=== PATIENT | female | born 1950 | race Asian ===

== ENCOUNTER 2017-02-28 06:28 | Emergency (ER) | payer BC ==
[~2017-02-28] VITALS: Ht 165.1 cm; Wt 90.4 kg
[~2017-02-28 06:28] MED LIST: ASPIRIN LOW81 M1 OR; AUGMENTIN875TAB PO; CIPROFLOXACN500 MG PO; D-3-55000 UNIT OR; DETROL LA2 MG PO; LISINOPRIL10 MG PO; LOPRESSOR25 M1 PO; LOPRESSOR50 M1 PO; LORTAB 7.57.5 MG OR; MECLIZINE12.5 MG PO; MELOXICAM15 MG PO; METOPROL TAR50 MG PO; MEXILETINE150 MG OR; NAPROSYN500 MG PO; NAPROXEN250 MG PO; NO HOME MEDS; OMEPRAZOLE20 MG; OMEPRAZOLE20 MG PO; PROTONIX40 M2 PO; PYRIDIUM200 MG PO; SIMVASTATIN10 MG PO; SIMVASTATIN40 MG PO; VITAMIN D-35000 UNIT; ZOLOFT25 MG PO
[2017-02-28] MEDS ORDERED: METFORMIN500 M2 PO (06:34)
[2017-02-28] MEDS ORDERED: PRINIVIL5 MG PO (06:35)
[2017-02-28] MEDS ORDERED: PYRIDIUM200 MG PO (07:16)
[2017-02-28] MEDS ORDERED: KEFLEX500 MG PO (07:16)
[2017-02-28 07:28] LABS: URINE BILIRUBIN - DIPSTICK NEGATIVE (NEGATIVE); URINE BLOOD DIPSTICK SMALL (NEGATIVE); URINE CLARITY CLEAR; URINE COLOR YELLOW; URINE GLUCOSE - DIPSTICK NEGATIVE (NEGATIVE); URINE KETONE NEGATIVE (NEGATIVE); URINE LEUK ESTERASE TRACE (NEGATIVE); URINE NITRITE - DIPSTICK NEGATIVE (Negative); URINE PROTEIN - DIPSTICK TRACE mg/dL (NEG-TRACE); URINE SPECIFIC GRAVITY >=1.030; URINE UROBILINOGEN - DIPSTICK 0.2 E.U./dL (0.2)
[2017-02-28 07:38] LABS: URINE SQUAMOUS EPITHELIAL CELL FEW EPI/hpf (0-FEW)
[2017-02-28 07:45] VITALS: BP 144/64
== END 2017-02-28 07:52 | disposition home or self-care (01) | DRG 690 ==
LOC: ED 06:28
PROVIDERS: Emergency Medicine
DX: N39.0 Urinary tract infection, site not specified (principal); I10 Essential (primary) hypertension; I25.10 Atherosclerotic heart disease of native coronary artery without angina pectoris; E11.9 Type 2 diabetes mellitus without complications; E78.00 Pure hypercholesterolemia, unspecified

== ENCOUNTER 2018-04-03 19:47 | Emergency (ER) | payer BC ==
[~2018-04-03] VITALS: Ht 165.1 cm; Wt 89.1 kg
[~2018-04-03 19:47] MED LIST changes: +KEFLEX500 MG PO; +METFORMIN500 M2 PO; +PRINIVIL5 MG PO
[2018-04-03] MEDS ORDERED: TOLTERODINE TART4 MG PO (19:55)
[2018-04-03] MEDS ORDERED: VITAMIN D-31000 UNI1 PO (19:56)
[2018-04-03 20:39] LABS: HEMATOCRIT 39.8 % (37.0-47.0); IMMATURE GRANULOCYTES 0.2 % (0.0-1.0); MEAN CELL VOLUME 98.3 fL CALC (80.0-100.0); MEAN CORPUSCULAR HGB 32.3 pG CALC (26.0-32.0); MEAN CORPUSCULAR HGB CONC 32.9 g/L CALC (32.0-36.0); NEUT# 3.8 thou/uL (2.00-7.15); RED BLOOD COUNT 4.05 mill/uL (4.20-5.60); RED CELL DISTRI WIDTH 12.5 % (11.5-15.5)
[2018-04-03 20:40] LABS: HEMOGLOBIN 13.1 g/dl (12.0-16.0); URINE BILIRUBIN - DIPSTICK NEGATIVE (NEGATIVE); URINE BLOOD DIPSTICK NEGATIVE (NEGATIVE); URINE CLARITY CLEAR; URINE COLOR YELLOW; URINE GLUCOSE - DIPSTICK NEGATIVE (NEGATIVE); URINE KETONE NEGATIVE (NEGATIVE); URINE LEUK ESTERASE NEGATIVE (NEGATIVE); URINE NITRITE - DIPSTICK NEGATIVE (Negative); URINE PROTEIN - DIPSTICK NEGATIVE (NEG-TRACE); URINE SPECIFIC GRAVITY <=1.005; URINE UROBILINOGEN - DIPSTICK 0.2 E.U./dL (0.2)
[2018-04-03 20:50] LABS: ALBUMIN 3.9 g/dL (3.2-5.0); ALKALINE PHOSPHATASE 69 u/l (38-126); ANION GAP 11 (6-22 (CALC)); BILIRUBIN, TOTAL 0.4 mg/dL (0.0-1.4); BUN 17 mg/dL (8-23); BUN/CREATININE RATIO 25 (12-20 (CALC)); CARBON DIOXIDE 25 mmol/l (22-30); CHLORIDE 108 mmol/l (95-108); CREATININE 0.7 mg/dL (0.5-1.0); GFR > 60 ML/MIN (>=60 (CALC)); GFR FOR AFR.AMER. > 60 ML/MIN (>=60 (CALC)); POTASSIUM 3.8 mmol/l (3.5-5.1); SGOT/AST 23 u/l (9-36); SGPT/ALT 38 u/l (11-66); SODIUM 140 mmol/l (137-146); TOTAL PROTEIN 6.8 g/dL (6.3-8.2)
[2018-04-03 21:02] LABS: MYOGLOBIN 21 ng/mL (0 - 62)
[2018-04-03] MEDS ORDERED: LISINOPRIL10 MG PO (21:27)
[2018-04-03 21:33] VITALS: BP 157/66
== END 2018-04-03 21:41 | disposition home or self-care (01) | DRG 305 ==
LOC: ED 19:47
PROVIDERS: Family Medicine
DX: I10 Essential (primary) hypertension (principal); R00.1 Bradycardia, unspecified; I48.91 Unspecified atrial fibrillation; K21.9 Gastro-esophageal reflux disease without esophagitis

== ENCOUNTER 2019-01-12 12:30 | Emergency (ER) | payer BC ==
[~2019-01-12] VITALS: Ht 165.1 cm; Wt 90.0 kg
[~2019-01-12 12:30] MED LIST changes: +ASPIRIN 8181 MG PO; +METO50TA52 PO; +PROTONIX40 MG PO; +TOLTERODINE TART4 MG PO; +VITAMIN D-31000 UNI1 PO
[2019-01-12 13:09] LABS: HEMATOCRIT 43.7 % (37.0-47.0); HEMOGLOBIN 14.1 g/dl (12.0-16.0); IMMATURE GRANULOCYTES 0.3 % (0.0-5.0); MEAN CELL VOLUME 96.5 fL CALC (80.0-100.0); MEAN CORPUSCULAR HGB 31.1 pG CALC (26.0-32.0); MEAN CORPUSCULAR HGB CONC 32.3 g/L CALC (32.0-36.0); NEUT# 3.85 thou/uL (2.00-7.15); RED BLOOD COUNT 4.53 mill/uL (4.20-5.60); RED CELL DISTRI WIDTH 12.5 % (11.5-15.5)
[2019-01-12 13:22] LABS: ALBUMIN 4.2 g/dL (3.2-5.0); ALKALINE PHOSPHATASE 71 u/l (38-126); ANION GAP 13 (6-22 (CALC)); BILIRUBIN, TOTAL 0.7 mg/dL (0.0-1.4); BUN 18 mg/dL (8-23); BUN/CREATININE RATIO 24 (12-20 (CALC)); CARBON DIOXIDE 25 mmol/l (22-30); CHLORIDE 109 mmol/l (95-108); CREATININE 0.7 mg/dL (0.5-1.0); GFR > 60 ML/MIN (>=60 (CALC)); GFR FOR AFR.AMER. > 60 ML/MIN (>=60 (CALC)); LIPASE 92 u/l (23-300); POTASSIUM 4.4 mmol/l (3.5-5.1); SGOT/AST 29 u/l (9-36); SODIUM 142 mmol/l (137-146); TOTAL PROTEIN 7.1 g/dL (6.3-8.2)
[2019-01-12 14:36] VITALS: BP 176/81
[2019-01-12 14:39] LABS: URINE BILIRUBIN - DIPSTICK NEGATIVE (NEGATIVE); URINE BLOOD DIPSTICK NEGATIVE (NEGATIVE); URINE COLOR YELLOW; URINE GLUCOSE - DIPSTICK NEGATIVE (NEGATIVE); URINE KETONE NEGATIVE (NEGATIVE); URINE LEUK ESTERASE NEGATIVE (NEGATIVE); URINE NITRITE - DIPSTICK NEGATIVE (Negative); URINE PH 5.5 (4.5-8.0); URINE PROTEIN - DIPSTICK NEGATIVE (NEG-TRACE); URINE UROBILINOGEN - DIPSTICK 0.2 E.U./dL (0.2)
== END 2019-01-12 15:00 | disposition home or self-care (01) | DRG 313 ==
LOC: ED 12:30
PROVIDERS: Family Medicine
DX: R07.9 Chest pain, unspecified (principal); E11.9 Type 2 diabetes mellitus without complications; I10 Essential (primary) hypertension; I48.91 Unspecified atrial fibrillation; K21.9 Gastro-esophageal reflux disease without esophagitis

== ENCOUNTER 2019-11-03 13:55 | Inpatient (IN) | payer MEDICARE, OTHER ==
[~2019-11-03] VITALS: Ht 165.1 cm; Wt 87.0 kg
[~2019-11-03 13:55] MED LIST changes: -METO50TA52 PO; +TOPROL XL25 M1 PO; -VITAMIN D-31000 UNI1 PO; +VITAMIN D35000 UNI1 PO
[2019-11-03 14:37] LABS: HEMOGLOBIN 13.9 g/dl (12.0-16.0); IMMATURE GRANULOCYTES 0.6 % (0.0-5.0); MEAN CELL VOLUME 97.4 fL CALC (80.0-100.0); MEAN CORPUSCULAR HGB 32.3 pG CALC (26.0-32.0); MEAN CORPUSCULAR HGB CONC 33.1 g/L CALC (32.0-36.0); NEUT# 7.24 thou/uL (2.00-7.15); RED BLOOD COUNT 4.31 mill/uL (4.20-5.60)
[2019-11-03 14:47] LABS: ACT PARTIAL THROMBO TIME 24.2 SECONDS (20.0-32.5); PROTHROMBIN TIME 10.1 SECONDS (9.0-12.5)
[2019-11-03 14:53] LABS: ALBUMIN 3.8 g/dL (3.2-5.0); ALKALINE PHOSPHATASE 61 u/l (38-126); AMYLASE 441 u/l (30-110); ANION GAP 11 (6-22 (CALC)); BILIRUBIN, TOTAL 0.5 mg/dL (0.0-1.4); BUN 32 mg/dL (8-23); BUN/CREATININE RATIO 36 (12-20 (CALC)); CARBON DIOXIDE 27 mmol/l (22-30); CHLORIDE 105 mmol/l (95-108); CREATININE 0.9 mg/dL (0.5-1.0); GFR > 60 ML/MIN (>=60 (CALC)); GFR FOR AFR.AMER. > 60 ML/MIN (>=60 (CALC)); POTASSIUM 3.7 mmol/l (3.5-5.1); SGOT/AST 23 u/l (9-36); SODIUM 138 mmol/l (137-146); TOTAL PROTEIN 6.5 g/dL (6.3-8.2)
[2019-11-03 15:04] LABS: LIPASE 5870 u/l (23-300)
[2019-11-03] MEDS ORDERED: LOSARTAN POTASS25 MG PO (15:10)
[2019-11-03] MEDS ORDERED: MAGNESIUM400 M1 PO (15:10)
[2019-11-03] MEDS ORDERED: VITAMIN B-125000 MC2 PO (15:11)
[2019-11-03] MEDS ORDERED: ZOVIRAX800 MG PO (15:12)
[2019-11-03] MEDS ORDERED: BENZONATATE200 MG PO (15:12)
[2019-11-03] MEDS ORDERED: ALBUTEROL108 MCG/AC IN (15:13)
[2019-11-03 18:35] VITALS: BP 186/65
[2019-11-04] VITALS: BP 120/56
[2019-11-04 03:13] VITALS: BP 130/69
[2019-11-04 05:31] LABS: HEMOGLOBIN 13.1 g/dl (12.0-16.0); MEAN CELL VOLUME 98.3 fL CALC (80.0-100.0); MEAN CORPUSCULAR HGB 32.2 pG CALC (26.0-32.0); MEAN CORPUSCULAR HGB CONC 32.8 g/L CALC (32.0-36.0); RED BLOOD COUNT 4.07 mill/uL (4.20-5.60)
[2019-11-04 05:54] LABS: ANION GAP 9 (6-22 (CALC)); BUN 17 mg/dL (8-23); BUN/CREATININE RATIO 24 (12-20 (CALC)); CARBON DIOXIDE 26 mmol/l (22-30); CHLORIDE 109 mmol/l (95-108); CREATININE 0.7 mg/dL (0.5-1.0); GFR > 60 ML/MIN (>=60 (CALC)); GFR FOR AFR.AMER. > 60 ML/MIN (>=60 (CALC)); POTASSIUM 3.7 mmol/l (3.5-5.1); SODIUM 140 mmol/l (137-146)
[2019-11-04 06:08] LABS: LIPASE 3008 u/l (23-300)
[2019-11-04 11:31] LABS: CHOLESTEROL HDL RATIO 2.7 (<4.4 (CALC))
[2019-11-04 15:56] VITALS: BP 158/55
[2019-11-04 18:31] VITALS: BP 164/68
[2019-11-04 19:50] VITALS: BP 150/65
[2019-11-05 00:39] LABS: URINE BILIRUBIN - DIPSTICK NEGATIVE (NEGATIVE); URINE BLOOD DIPSTICK NEGATIVE (NEGATIVE); URINE COLOR YELLOW; URINE GLUCOSE - DIPSTICK NEGATIVE (NEGATIVE); URINE KETONE NEGATIVE (NEGATIVE); URINE LEUK ESTERASE NEGATIVE (NEGATIVE); URINE NITRITE - DIPSTICK NEGATIVE (Negative); URINE PH 6.5 (4.5-8.0); URINE PROTEIN - DIPSTICK NEGATIVE (NEG-TRACE); URINE SPECIFIC GRAVITY <=1.005; URINE UROBILINOGEN - DIPSTICK 0.2 E.U./dL (0.2)
[2019-11-05 03:52] VITALS: BP 158/66
[2019-11-05 05:21] LABS: HEMATOCRIT 39.4 % (37.0-47.0); MEAN CORPUSCULAR HGB 32.7 pG CALC (26.0-32.0); RED BLOOD COUNT 3.98 mill/uL (4.20-5.60); RED CELL DISTRI WIDTH 13.2 % (11.5-15.5)
[2019-11-05 05:44] LABS: ANION GAP 11 (6-22 (CALC)); BUN 11 mg/dL (8-23); BUN/CREATININE RATIO 18 (12-20 (CALC)); CARBON DIOXIDE 24 mmol/l (22-30); CHLORIDE 108 mmol/l (95-108); CREATININE 0.6 mg/dL (0.5-1.0); GFR > 60 ML/MIN (>=60 (CALC)); GFR FOR AFR.AMER. > 60 ML/MIN (>=60 (CALC)); LIPASE 1467 u/l (23-300); POTASSIUM 3.8 mmol/l (3.5-5.1); SODIUM 139 mmol/l (137-146)
[2019-11-05 08:00] VITALS: BP 184/63
[2019-11-05 15:00] VITALS: BP 167/67
[2019-11-05 19:35] VITALS: BP 149/65
[2019-11-06 04:15] VITALS: BP 140/67
[2019-11-06 06:26] LABS: ALKALINE PHOSPHATASE 59 u/l (38-126); ANION GAP 8 (6-22 (CALC)); BILIRUBIN, TOTAL 0.7 mg/dL (0.0-1.4); BUN 8 mg/dL (8-23); BUN/CREATININE RATIO 14 (12-20 (CALC)); CARBON DIOXIDE 27 mmol/l (22-30); CHLORIDE 108 mmol/l (95-108); CREATININE 0.6 mg/dL (0.5-1.0); GFR > 60 ML/MIN (>=60 (CALC)); GFR FOR AFR.AMER. > 60 ML/MIN (>=60 (CALC)); LIPASE 668 u/l (23-300); POTASSIUM 3.9 mmol/l (3.5-5.1); SGOT/AST 21 u/l (9-36); SODIUM 139 mmol/l (137-146); TOTAL PROTEIN 5.4 g/dL (6.3-8.2)
[2019-11-06 09:09] VITALS: BP 149/67; BP 173/64
[2019-11-06 11:40] VITALS: BP 149/67
[2020-05-13] MEDS ORDERED: DITROPAN5 MG/TA1 PO (12:57)
== END 2019-11-06 14:40 | disposition home or self-care (01) | DRG 440 ==
LOC: ED 13:55 → ED-I 16:41 → ED 16:48 → MS2 16:49
PROVIDERS: Nurse Practitioner Family; ADMIT Internal Medicine; ATTEND Internal Medicine
DX: K85.90 Acute pancreatitis without necrosis or infection, unspecified (principal); E11.9 Type 2 diabetes mellitus without complications; I10 Essential (primary) hypertension; E78.5 Hyperlipidemia, unspecified; K21.9 Gastro-esophageal reflux disease without esophagitis; R00.1 Bradycardia, unspecified; Z87.891 Personal history of nicotine dependence; Z79.84 Long term (current) use of oral hypoglycemic drugs
CPT/HCPCS: Q9967; S0164

== ENCOUNTER 2019-11-11 | Emergency (ER) | payer MEDICARE, OTHER ==
[~2019-11-11] MED LIST changes: +ALBUTEROL108 MCG/AC IN; +BENZONATATE200 MG PO; +LOSARTAN POTASS25 MG PO; +MAGNESIUM400 M1 PO; +VITAMIN B-125000 MC2 PO; +ZOVIRAX800 MG PO
[2019-11-11 12:55] LABS: URINE BILIRUBIN - DIPSTICK NEGATIVE (NEGATIVE); URINE BLOOD DIPSTICK NEGATIVE (NEGATIVE); URINE COLOR YELLOW; URINE GLUCOSE - DIPSTICK NEGATIVE (NEGATIVE); URINE KETONE NEGATIVE (NEGATIVE); URINE LEUK ESTERASE NEGATIVE (NEGATIVE); URINE NITRITE - DIPSTICK NEGATIVE (Negative); URINE PH 5.5 (4.5-8.0); URINE PROTEIN - DIPSTICK NEGATIVE (NEG-TRACE); URINE SPECIFIC GRAVITY <=1.005; URINE UROBILINOGEN - DIPSTICK 0.2 E.U./dL (0.2)
[2019-11-11 13:34] LABS: HEMOGLOBIN 13.6 g/dl (12.0-16.0); IMMATURE GRANULOCYTES 0.3 % (0.0-5.0); MEAN CELL VOLUME 98.6 fL CALC (80.0-100.0); MEAN CORPUSCULAR HGB 31.9 pG CALC (26.0-32.0); MEAN CORPUSCULAR HGB CONC 32.4 g/L CALC (32.0-36.0); NEUT# 5.19 thou/uL (2.00-7.15); RED BLOOD COUNT 4.26 mill/uL (4.20-5.60); RED CELL DISTRI WIDTH 12.9 % (11.5-15.5)
[2019-11-11 13:52] LABS: ALBUMIN 3.9 g/dL (3.2-5.0); ALKALINE PHOSPHATASE 67 u/l (38-126); AMYLASE 81 u/l (30-110); ANION GAP 14 (6-22 (CALC)); BILIRUBIN, TOTAL 0.8 mg/dL (0.0-1.4); BUN 15 mg/dL (8-23); BUN/CREATININE RATIO 21 (12-20 (CALC)); CARBON DIOXIDE 23 mmol/l (22-30); CHLORIDE 100 mmol/l (95-108); CREATININE 0.7 mg/dL (0.5-1.0); GFR > 60 ML/MIN (>=60 (CALC)); GFR FOR AFR.AMER. > 60 ML/MIN (>=60 (CALC)); LIPASE 385 u/l (23-300); POTASSIUM 4.4 mmol/l (3.5-5.1); SGOT/AST 35 u/l (9-36); SODIUM 133 mmol/l (137-146); TOTAL PROTEIN 6.9 g/dL (6.3-8.2)
[2019-11-11 14:03] LABS: MYOGLOBIN 23 ng/mL (0 - 62)
[2019-11-11] MEDS ORDERED: ANTIVERT PO (15:16)
[2020-05-13] MEDS ORDERED: DITROPAN5 MG/TA1 PO (12:57)
== END 2019-11-11 16:03 | disposition home or self-care (01) ==
PROVIDERS: Emergency Medicine
DX: R42 Dizziness and giddiness (principal); R00.1 Bradycardia, unspecified; E11.9 Type 2 diabetes mellitus without complications; I10 Essential (primary) hypertension; I48.91 Unspecified atrial fibrillation

== ENCOUNTER 2020-05-20 07:23 | Day surgery (SDC) | payer MEDICARE, OTHER ==
[~2020-05-20] VITALS: Ht 165.1 cm; Wt 86.2 kg
[~2020-05-20 07:23] MED LIST changes: +ANTIVERT PO; +DITROPAN5 MG/TA1 PO
[2020-05-20 10:54] VITALS: BP 125/67
== END 2020-05-20 10:40 | disposition home or self-care (01) ==
LOC: ENDO 07:23 → ORM 08:00 → ENDO 09:00
PROVIDERS: ATTEND Internal Medicine Gastroenterology
PROC: 0DB78ZX Excision of Stomach, Pylorus, Via Natural or Artificial Opening Endoscopic, Diagnostic (ICD-10-PCS; principal; 2020-05-20)
PROC: 0D758ZZ Dilation of Esophagus, Via Natural or Artificial Opening Endoscopic (ICD-10-PCS; 2020-05-20)
PROC: 0DBP8ZX Excision of Rectum, Via Natural or Artificial Opening Endoscopic, Diagnostic (ICD-10-PCS; 2020-05-20)
PROC: 0DBN8ZX Excision of Sigmoid Colon, Via Natural or Artificial Opening Endoscopic, Diagnostic (ICD-10-PCS; 2020-05-20)
DX: K29.60 Other gastritis without bleeding (principal); Q39.8 Other congenital malformations of esophagus; I85.00 Esophageal varices without bleeding; D13.0 Benign neoplasm of esophagus; J39.2 Other diseases of pharynx; Z12.11 Encounter for screening for malignant neoplasm of colon; K63.5 Polyp of colon; K64.4 Residual hemorrhoidal skin tags; K64.8 Other hemorrhoids; I10 Essential (primary) hypertension; E11.9 Type 2 diabetes mellitus without complications; K29.50 Unspecified chronic gastritis without bleeding; Z79.84 Long term (current) use of oral hypoglycemic drugs; Z79.899 Other long term (current) drug therapy; Z86.010 Personal history of colon polyps; Z11.59 Encounter for screening for other viral diseases

== ENCOUNTER 2020-10-10 01:50 | Emergency (ER) | payer MEDICARE, OTHER ==
[~2020-10-10] VITALS: Ht 165.1 cm; Wt 84.0 kg
[2020-10-10 03:16] LABS: HEMATOCRIT 39.5 % (37.0-47.0); HEMOGLOBIN 12.7 g/dl (12.0-16.0); IMMATURE GRANULOCYTES 0.2 % (0.0-5.0); MEAN CELL VOLUME 98.8 fL CALC (80.0-100.0); MEAN CORPUSCULAR HGB 31.8 pG CALC (26.0-32.0); MEAN CORPUSCULAR HGB CONC 32.2 g/dL CAL (32.0-36.0); NEUT# 5.8 thou/uL (2.00-7.15); RED CELL DISTRI WIDTH 12.2 % (11.5-15.5)
[2020-10-10 03:17] LABS: URINE BILIRUBIN - DIPSTICK NEGATIVE (NEGATIVE); URINE BLOOD DIPSTICK NEGATIVE (NEGATIVE); URINE COLOR YELLOW; URINE GLUCOSE - DIPSTICK NEGATIVE (NEGATIVE); URINE KETONE NEGATIVE (NEGATIVE); URINE LEUK ESTERASE NEGATIVE (NEGATIVE); URINE NITRITE - DIPSTICK NEGATIVE (Negative); URINE PH 5.5 (4.5-8.0); URINE PROTEIN - DIPSTICK NEGATIVE (NEG-TRACE); URINE SPECIFIC GRAVITY <=1.005; URINE UROBILINOGEN - DIPSTICK 0.2 E.U./dL (0.2)
[2020-10-10 03:25] LABS: ALBUMIN 4.3 g/dL (3.2-5.0); ALKALINE PHOSPHATASE 71 u/l (38-126); AMYLASE 67 u/l (30-110); ANION GAP 9 (6-22 (CALC)); BILIRUBIN, TOTAL 0.5 mg/dL (0.0-1.4); BUN 17 mg/dL (8-23); BUN/CREATININE RATIO 18 (12-20 (CALC)); CARBON DIOXIDE 27 mmol/l (22-30); CHLORIDE 106 mmol/l (95-108); CREATININE 0.9 mg/dL (0.5-1.0); GFR > 60 ML/MIN (>=60 (CALC)); GFR FOR AFR.AMER. > 60 ML/MIN (>=60 (CALC)); LIPASE 197 u/l (23-300); SGOT/AST 37 u/l (9-36); SODIUM 138 mmol/l (137-146); TOTAL PROTEIN 7.1 g/dL (6.3-8.2)
[2020-10-10] MEDS ORDERED: CARAFATE PO (03:48)
[2020-10-10] MEDS ORDERED: ACID CONTROLLER20 MG (03:49)
[2020-10-10] MEDS ORDERED: OMEPRAZOLE DR40 MG (03:50)
[2020-10-10] MEDS ORDERED: SIMVASTATIN40 MG PO (03:51)
[2020-10-10 04:44] VITALS: BP 121/59
== END 2020-10-10 04:44 | disposition home or self-care (01) ==
LOC: ED 01:50
PROVIDERS: Emergency Medicine
DX: R00.1 Bradycardia, unspecified (principal); M54.6 Pain in thoracic spine; E11.9 Type 2 diabetes mellitus without complications; I10 Essential (primary) hypertension; I48.91 Unspecified atrial fibrillation; K21.9 Gastro-esophageal reflux disease without esophagitis; Z79.84 Long term (current) use of oral hypoglycemic drugs

== ENCOUNTER 2021-06-05 14:44 | Inpatient (IN) | payer MEDICARE, OTHER ==
[~2021-06-05] VITALS: Ht 165.1 cm; Wt 82.0 kg
[~2021-06-05 14:44] MED LIST changes: +ACID CONTROLLER20 MG; +CARAFATE PO; +OMEPRAZOLE DR40 MG
--- NOTE | 2021-06-05 15:22 | NUR ---
PT AMBULATED TO BATHROOM AND TO ROOM FOR TRIAGE WITH STEADY GAIT.
[2021-06-05 16:29] LABS: HEMOGLOBIN 14.6 g/dl (12.0-16.0); MEAN CELL VOLUME 96.9 fL CALC (80.0-100.0); MEAN CORPUSCULAR HGB 32.2 pG CALC (26.0-32.0); MEAN CORPUSCULAR HGB CONC 33.2 g/dL CAL (32.0-36.0); NEUT# 3.78 thou/uL (2.00-7.15); RED BLOOD COUNT 4.54 mill/uL (4.20-5.60); RED CELL DISTRI WIDTH 12.3 % (11.5-15.5)
--- NOTE | 2021-06-05 16:32 | NUR ---
PT ASSISTED TO BSC ON RA. DESATTED TO 85% RA. RETURNED TO BED O2 2L/M VIA NC APPLIED. SATS IMPROVED TO 94%.
[2021-06-05 16:40] LABS: ALBUMIN 3.9 g/dL (3.2-5.0); ANION GAP 15 (6-22 (CALC)); BILIRUBIN, TOTAL 0.4 mg/dL (0.0-1.4); BUN 7 mg/dL (8-23); BUN/CREATININE RATIO 9 (12-20 (CALC)); CARBON DIOXIDE 24 mmol/l (22-30); CHLORIDE 97 mmol/l (95-108); CREATININE 0.8 mg/dL (0.5-1.0); ETHYL ALCOHOL 0 mg/dl (0-30); GFR > 60 ML/MIN (>=60 (CALC)); GFR FOR AFR.AMER. > 60 ML/MIN (>=60 (CALC)); LIPASE 66 u/l (23-300); POTASSIUM 4.3 mmol/l (3.5-5.1); SODIUM 132 mmol/l (137-146)
[2021-06-05 16:43] LABS: ALKALINE PHOSPHATASE 114 u/l (38-126); MAGNESIUM 1.7 mg/dL (1.6-2.3); SGOT/AST 84 u/l (9-36)
[2021-06-05 16:46] LABS: D-DIMER 0.56 mg/L (0.19-0.60)
[2021-06-05 16:54] LABS: URINE BLOOD DIPSTICK TRACE-INTACT (NEGATIVE); URINE COLOR YELLOW; URINE GLUCOSE - DIPSTICK NEGATIVE (NEGATIVE); URINE KETONE >=80 mg/dL (NEGATIVE); URINE LEUK ESTERASE TRACE (NEGATIVE); URINE PROTEIN - DIPSTICK 100 mg/dL (NEG-TRACE); URINE SPECIFIC GRAVITY 1.025; URINE UROBILINOGEN - DIPSTICK 0.2 E.U./dL (0.2)
[2021-06-05 16:56] LABS: URINE BILIRUBIN - DIPSTICK NEGATIVE (NEGATIVE); URINE NITRITE - DIPSTICK NEGATIVE (Negative)
[2021-06-05 16:58] LABS: URINE SQUAMOUS EPITHELIAL CELL FEW EPI/hpf (0-FEW)
[2021-06-05 17:00] LABS: ACT PARTIAL THROMBO TIME 28.6 SECONDS (20.0-32.5); INTERNATIONAL NORMALIZED RATIO 0.9 RATIO (0.7-1.3); PROTHROMBIN TIME 9.9 SECONDS (9.0-12.5)
--- NOTE | 2021-06-05 17:10 | NUR ---
PT ADVISED OF WAIT TIME FOR TEST RESULTS.
--- NOTE | 2021-06-05 19:49 | NUR ---
MEAL TRAY PROVIDED PT ABLE TO FEED SELF
--- NOTE | 2021-06-05 20:46 | NUR ---
REPORT CALLED TO VIVIANA LILLY ON [facility] ADVISED OF ALL MEDS, ATTACHMENTS, EVENTS. VSS NO C/O PAIN/DISCOMFORT
--- NOTE | 2021-06-05 21:37 | NUR ---
AWAITING CLEAN, READY BED. TELEBOX 8610 IN USE. PT UPDATED ON CONDITION REQUESTED.
--- NOTE | 2021-06-05 21:59 | NUR ---
PHYSICAL ASSESMENT COMPLETE. PT CURRENTLY DENIES PAIN OR DISCOMFORT. HOME MEDICATIONS RECONCILED WITH EVE MANJARREZ AND [facility]. SCHEDULED MEDICATIONS AND PRN MEDICATION ADMINISTERED, SEE E-MAR. PT DENIES ANY NEEDS AT THIS TIME. PLAN OF CARE REVIEWED, PT DENIES QUESTIONS, VERBALIZES UNDERSTANDING. ITEMS WITHIN REACH, BED LOCKED IN LOW POSITION W/ BEDRAILS UP X2. CALL PANIAGUA WITHIN REACH, AGREES TO CALL PRN.
--- NOTE | 2021-06-05 22:10 | NUR ---
Admission Note Report Given to: Transported by: X Wheelchair Stretcher Transported with: X Nurse Transporter X Patent IV X O2 X Medical Director/Head Team Physician Location: ICU X [facility]2 TRANSPORTED BY JEVON MENDEZNURSING EDUCATION SPECIALIST
--- NOTE | 2021-06-05 22:11 | NUR ---
PT RECEIVED FROM ED TO ROOM 268. ARRIVES VIA W/C ACCOMPANIED BY ANDREA ROBBINS. PT AMBULATORY TO BED. GAIT UNSTEADY. PT DENIES PAIN AT THIS TIME. ORIENTED TO UNIT, ROOM, CALL PANIAGUA, LIGHTS, TV. ICE WATER PROVIDED. CALL PANIAGUA WITHIN REACH. AGREES TO CALL PRN.
[2021-06-05 22:58] VITALS: BP 149/69
--- NOTE | 2021-06-05 23:04 | NUR ---
PHYSICAL ASSESMENT COMPLETE. PT CURRENTLY DENIES PAIN OR DISCOMFORT. SCHEDULED MEDICATIONS AND PRN MEDICATION ADMINISTERED, SEE E-MAR. PT DENIES ANY NEEDS AT THIS TIME. PLAN OF CARE REVIEWED, PT DENIES QUESTIONS, VERBALIZES UNDERSTANDING. ITEMS WITHIN REACH, BED LOCKED IN LOW POSITION W/ BEDRAILS UP X2. CALL PANIAGUA WITHIN REACH, AGREES TO CALL PRN.
--- NOTE | 2021-06-06 | NUR ---
PT LAYING IN BED WITH EYES CLOSED, APPEARS TO BE SLEEPING, APPEARS COMFORTABLE AND IN NO DISTRESS. RESPIRATIONS REGULAR AND UNLABORED. ITEMS REMAIN WITHIN REACH, CALL PANIAGUA REMAINS WITHIN REACH. BED REMAINS LOCKED AND IN LOW POSITION WITH BEDRAILS UP X2. WILL CONTINUE TO MONITOR.
--- NOTE | 2021-06-06 00:20 | NUR ---
PT PULLING DOWN BIPAP MASK. REDNESS NOTED TO BRIDGE OF NOSE. RT NOTIFIED FOR GEL PADDING. PADDING NOT AVAILABLE. GAUZE PLACED. PT WEANED TO NON-REBREATHER MASK BY RT. WILL CONTINUE TO MONITOR CLOSELY.
--- NOTE | 2021-06-06 01:16 | NUR ---
TACHYPNEA NOTED. PT FREQUENTLY REMOVING NON-REBREATHER MASK. O2 SAT DROPS TO 85%. RT NOTIFIED TO REPLACE BIPAP DUE TO INCREASED RR AND INCREASED WORK OF BREATHING.
--- NOTE | 2021-06-06 03:54 | NUR ---
PT RESTING IN BED, NO SIGNS OF DISTRESS NOTED, RESP EVEN AND UNLABORED. PT VOICES NO NEEDS OR COMPLAINTS AT THIS TIME. CALL LIGHT IN REACH, CONTINUE TO MONITOR.
[2021-06-06 04:00] VITALS: BP 123/55
[2021-06-06 05:46] LABS: HEMATOCRIT 42.9 % (37.0-47.0); HEMOGLOBIN 14.2 g/dl (12.0-16.0); IMMATURE GRANULOCYTES 0.2 % (0.0-5.0); MEAN CELL VOLUME 97.1 fL CALC (80.0-100.0); MEAN CORPUSCULAR HGB 32.1 pG CALC (26.0-32.0); MEAN CORPUSCULAR HGB CONC 33.1 g/dL CAL (32.0-36.0); NEUT# 3.19 thou/uL (2.00-7.15); RED BLOOD COUNT 4.42 mill/uL (4.20-5.60); RED CELL DISTRI WIDTH 12.3 % (11.5-15.5)
[2021-06-06 06:10] LABS: ALBUMIN 3.5 g/dL (3.2-5.0); ALKALINE PHOSPHATASE 104 u/l (38-126); ANION GAP 15 (6-22 (CALC)); BILIRUBIN, TOTAL 0.4 mg/dL (0.0-1.4); BUN 11 mg/dL (8-23); BUN/CREATININE RATIO 18 (12-20 (CALC)); CARBON DIOXIDE 25 mmol/l (22-30); CHLORIDE 99 mmol/l (95-108); CREATININE 0.6 mg/dL (0.5-1.0); GFR > 60 ML/MIN (>=60 (CALC)); GFR FOR AFR.AMER. > 60 ML/MIN (>=60 (CALC)); POTASSIUM 4.9 mmol/l (3.5-5.1); SGOT/AST 87 u/l (9-36); SODIUM 133 mmol/l (137-146); TOTAL PROTEIN 6.3 g/dL (6.3-8.2)
[2021-06-06 08:16] VITALS: BP 141/57
--- NOTE | 2021-06-06 08:16 | NUR ---
PT IN BED AND AWAKE WHEN ENTERED ROOM. PT IS COVID+. VITALS AND ASSESSMENT DONE. S1 AND S2 HEARD UPON ASCULTATION. LUNGS CLEAR BILATERALLY. PT ON 2L OF 02. STATING AT 94%. PT HAS A 20 LAC SALINE LOCK, HEALTHY AND PATENT. PT HAS A PRODUCTIVE COUGH WITH CLEAR MUCUS. PT IS ALERT AND ORIENTED. BOWEL SOUNDS ACTIVE IN ALL 4 QUADRANTS. SKIN WARM AND DRY. PEDAL PULSES EQUAL BILATERALLY. NO PAIN REPORTED. CALL LIGHT WITHIN REACH.
[2021-06-06 08:18] VITALS: BP 136/53
[2021-06-06] MEDS ORDERED: COZAAR25 MG PO (10:31)
[2021-06-06] MEDS ORDERED: FLUOCINONIDE0.053 EX (10:32)
[2021-06-06] MEDS ORDERED: HYDROCORT2.5 % EX (10:33)
[2021-06-06] MEDS ORDERED: DITROPAN5 MG/TA1 PO (10:35)
[2021-06-06] MEDS ORDERED: METFORMIN500 M2 PO (10:35)
[2021-06-06] MEDS ORDERED: PROTONIX40 M2 PO (10:39)
[2021-06-06] MEDS ORDERED: FAMOTIDINE20 M3 PO (10:40)
[2021-06-06 11:00] VITALS: BP 118/45
--- NOTE | 2021-06-06 12:00 | NUR ---
PT IN BED. NO DISTRESS NOTED. CALL LIGHT WITHIN REACH.
[2021-06-06 14:50] VITALS: BP 128/60
--- NOTE | 2021-06-06 16:00 | NUR ---
PT IN BED. NO DISTRESS NOTED. NO PAIN INDICATED. CALL LIGHT WITHIN REACH.
[2021-06-06 19:00] VITALS: BP 138/57
--- NOTE | 2021-06-06 19:00 | NUR ---
ASSESSMENT COMPLETED AT THIS TIME. PATIENT ALERT AND ORIENTED. ABLE TO MAKE NEEDS KNOWN. IV SITE TO LAC APPEARS PATENT. DENIES ANY PAIN AT THIS TIME. BED IN LOWEST POSITION. CALL LIGHT AND BELONGINGS WITHIN REACH.
--- NOTE | 2021-06-06 21:05 | NUR ---
RECEIVED ALL SCHEDULED MEDICATIONS WITHOUT DIFFICULTY. DENIES ANY PAIN OR DISCOMFORT. CALL LIGHT WITHIN REACH.
[2021-06-07] VITALS: BP 144/66
[2021-06-07 04:00] VITALS: BP 137/61
--- NOTE | 2021-06-07 04:22 | NUR ---
RESTING IN BED QUIETLY. NO COMPLAINTS VOICED AT THIS TIME. BED IN LOWEST POSITION. CALL LIGHT AND BELONGINGS WITHIN REACH.
[2021-06-07 06:01] LABS: HEMATOCRIT 41.9 % (37.0-47.0); HEMOGLOBIN 13.9 g/dl (12.0-16.0); IMMATURE GRANULOCYTES 0.2 % (0.0-5.0); MEAN CELL VOLUME 96.8 fL CALC (80.0-100.0); MEAN CORPUSCULAR HGB 32.1 pG CALC (26.0-32.0); MEAN CORPUSCULAR HGB CONC 33.2 g/dL CAL (32.0-36.0); NEUT# 7.73 thou/uL (2.00-7.15); RED BLOOD COUNT 4.33 mill/uL (4.20-5.60); RED CELL DISTRI WIDTH 12.4 % (11.5-15.5)
[2021-06-07 06:37] LABS: ALBUMIN 3.3 g/dL (3.2-5.0); ALKALINE PHOSPHATASE 105 u/l (38-126); ANION GAP 13 (6-22 (CALC)); BILIRUBIN, TOTAL 0.3 mg/dL (0.0-1.4); BUN 16 mg/dL (8-23); BUN/CREATININE RATIO 28 (12-20 (CALC)); CARBON DIOXIDE 24 mmol/l (22-30); CHLORIDE 104 mmol/l (95-108); CREATININE 0.6 mg/dL (0.5-1.0); GFR > 60 ML/MIN (>=60 (CALC)); GFR FOR AFR.AMER. > 60 ML/MIN (>=60 (CALC)); POTASSIUM 4.3 mmol/l (3.5-5.1); SGOT/AST 150 u/l (9-36); SODIUM 136 mmol/l (137-146)
--- NOTE | 2021-06-07 07:05 | NUR ---
REPORT RECEIVED FROM BALDOMERORN
--- NOTE | 2021-06-07 09:05 | NUR ---
PT RESTING IN SEMI FOWLERS POSITION,A&O X3;VS OBTAINED AND ASSESSMENT COMPLETED;PT DENIES ANY CURRENT PAIN OR DISCOMFORTS,PAIN SCALE AND REPORTING EDUCATED;RESPIRATIONS SHALLOW ON O2 @ 3L VIA NC,NON-PRODUCTIVE COUGH NOTED;ABDOMEN SOFT ON PALPATION AND ACTIVE IN ALL 4 QUADRANTS;STRONG PEDAL PULSES;SKIN INTACT;TELE MONITORING IN PLACE;#20G TO LAC FLUSHED AND PATENT,SITE APPEARS HEALTHY;ACCUCHECK 131, NO COVERAGE NEEDED;PT REMAINS IN AIR/CONTACT PRECAUTIONS DUE TO COVID19 DX;PT DENIES ANY ADDITIONAL NEEDS AND IS ENCOURAGED TO CALL FOR ASSISTANCE IF NEEDED;CALL LIGHT IN REACH;WILL CONTINUE TO MONITOR
[2021-06-07 09:06] VITALS: BP 134/55
--- NOTE | 2021-06-07 10:33 | NUR ---
AT BEDSIDE DISCUSSING POC.
--- NOTE | 2021-06-07 11:55 | NUR ---
PT RESTING IN SEMI FOWLERS POSITION;RESPIRATIONS SHALLOW ON O2 @ 3L VIA NC;PT DENIES ANY CURRENT PAIN OR NEEDS;TELE MONITORING IN PLACE;IV SITE PATENT;ACCUCHECK 138, NO COVERAGE NEEDED;PT ENCOURAGED TO CALL FOR ASSISTANCE IF NEEDED;FALL PRECAUTIONS REMAIN IN PLACE WITH CALL LIGHT IN REACH;WILL CONTINUE TO MONITOR
[2021-06-07 12:22] VITALS: BP 128/62
[2021-06-07 17:00] VITALS: BP 154/59
--- NOTE | 2021-06-07 17:00 | NUR ---
PT RESTING IN SEMI FOWLERS POSITION;RESPIRATIONS SHALLOW ON O2 @ 3L VIA NC;PT DENIES ANY CURRENT PAIN OR NEEDS;TELE MONITORING IN PLACE;IV SITE PATENT AND ABX STARTED PER ORDER;ACCUCHECK 197, PT COVERED WITH SLIDING SCALE INSULIN PER ORDER;PT ENCOURAGED TO CALL FOR ASSISTANCE IF NEEDED;CALL LIGHT IN REACH;WILL CONTINUE TO MONITOR
--- NOTE | 2021-06-07 19:38 | NUR ---
PATIENT SITTING UP IN THE BED AT THIS TIME 2WITH O2 VIA NASAL CANNULA IN PLACE AT 3LPM. O2 SAT AT THIS TIME IS 93%. AWAKE ALERT AND ORIENTEDX3. PATIENT STATES THAT SHE IS FEELING FULL SINCE EATING DINNER-APPETITE WAS GOOD. TELE MONITOR IN PLACE-LAST READING WAS SR-70'S. SALINE LOCK TO LAC INTACT AND APPEARS HEALTHY AT THIS TIME. ENCOURAGED USE OF IS Q1H WHILE AWAKE IN REPS OF 10. PATIENT IS ABLKE TO DEMONSTRATE PROPER USE OF THE DEVICE. ENCOURAGED PRONING WHEN POSSIBLE. VERBALIZES UNDERSTANDING OF THE STATES. PATIENT WITH OCC NON-PRODUCTIVE COUGH. DENIES ANY DIFFICULTY WITH URINATION. NO PERIPHERAL EDEMA NOTED. PULSES ARE PALPABLE. SAFETY PRECAUTIONS REINFORCED. CALL LIGHT IN REACH, WILL CONT TO MONITOR.
--- NOTE | 2021-06-07 21:39 | NUR ---
PATIENT WAS ASSISTED WITH SHOWER AND STATES THAT SHE IS FEELING MUCH BETTER- ALITTLE NAUSEA WHEN IN THE SHOWER BUT BETTER NOW IN BED. O2 VIA NASAL CANNULA IN PLACE. TELE MONITOR IN PLACE.SALINE LOCK INTACT. ACCU-CHECK WAS 157-COVERED WITH 1UNIT OF HUMALOG PER SLIDING SCALE COVERAGE PROTOCOL. HS SNACK PROVIDED. CALL LIGHT IN REACH. WILL CONT TO MONITOR.
[2021-06-08] VITALS: BP 144/66
--- NOTE | 2021-06-08 01:00 | NUR ---
PATIENT RESTING IN BED AT THIS TIME WITH EYES CLOSED AND O2 VIA NASAL CANNULA IN PLACE. O2 SAT WAS 92%. TELE MONITOR IN PLACE-LAST READING SB-49. RESP EVEN AND UNLABORED. CALL LIGHT IN REACH. WILL CONT TO MONITOR.
[2021-06-08 04:00] VITALS: BP 169/74
--- NOTE | 2021-06-08 04:26 | NUR ---
PATIENT FOUND RESTING IN BED AT THIS TIME WITH O2 OFF. O2 SAT WAS 82%. PATIENT C/O NAUSEA ABD NOT FEELING GOOD. O2 REAPPLIED AND INCREASED TO 5LPM TO MAINTAIN O2 SAT OF 92%. PATIENT INSTRUCTED TO LEAVE HER O2 IN PLACE. MEDICATED WITH ZOFRAN 4MG IVP FOR NAUSEA. TELE MONITOR IN PLACE. SAFETY PRECAUTIONS REINFORCED. CALL LIGHT IN REACH. WILL CONT TO MONITOR.
[2021-06-08 06:04] LABS: HEMATOCRIT 41.2 % (37.0-47.0); HEMOGLOBIN 13.5 g/dl (12.0-16.0); IMMATURE GRANULOCYTES 0.1 % (0.0-5.0); MEAN CELL VOLUME 98.6 fL CALC (80.0-100.0); MEAN CORPUSCULAR HGB 32.3 pG CALC (26.0-32.0); MEAN CORPUSCULAR HGB CONC 32.8 g/dL CAL (32.0-36.0); NEUT# 8.01 thou/uL (2.00-7.15); RED BLOOD COUNT 4.18 mill/uL (4.20-5.60); RED CELL DISTRI WIDTH 12.6 % (11.5-15.5)
[2021-06-08 06:36] LABS: ALBUMIN 3.2 g/dL (3.2-5.0); ALKALINE PHOSPHATASE 103 u/l (38-126); ANION GAP 12 (6-22 (CALC)); BILIRUBIN, TOTAL 0.3 mg/dL (0.0-1.4); BUN 17 mg/dL (8-23); BUN/CREATININE RATIO 30 (12-20 (CALC)); C-REACTIVE PROTEIN 2.9 mg/dL (0-0.9); CARBON DIOXIDE 22 mmol/l (22-30); CHLORIDE 106 mmol/l (95-108); CREATININE 0.6 mg/dL (0.5-1.0); GFR > 60 ML/MIN (>=60 (CALC)); GFR FOR AFR.AMER. > 60 ML/MIN (>=60 (CALC)); POTASSIUM 4.3 mmol/l (3.5-5.1); SGOT/AST 84 u/l (9-36); SODIUM 136 mmol/l (137-146); TOTAL PROTEIN 5.8 g/dL (6.3-8.2)
--- NOTE | 2021-06-08 07:10 | NUR ---
REPORT RECEIVED FROM ITZEL [place]
[2021-06-08 08:30] VITALS: BP 125/59
--- NOTE | 2021-06-08 08:30 | NUR ---
PT OOB RESTING IN RECLINER,A&O X3;VS OBTAINED AND ASSESSMENT COMPLETED;PT DENIES ANY CURRENT PAIN OR DISCOMFORTS,PAIN SCALE AND REPORTING EDUCATED;RESPIRATIONS SHALLOW ON O2 @ 7L HF NC AT THIS TIME,COARSE/DIMINISHED LUNG SOUNDS NOTED WITH NON-PRODUCTIVE COUGH;ABDOMEN SOFT ON PALPATION AND ACTIVE IN ALL 4 QUADRANTS;STRONG PEDAL PULSES;SKIN INTACT;TELE MONITORING IN PLACE;#20G TO LAC FLUSHED AND PATENT,SITE APPEARS HEALTHY;ACCUCHECK 127,NO COVERAGE NEEDED;PT REMAINS IN AIR/CONTACT PRECAUTIONS DUE TO COVID19 DX;PT DENIES ANY ADDITIONAL NEEDS AND IS ENCOURAGED TO CALL FOR ASSISTANCE IF NEEDED;FALL PRECAUTIONS IN PLACE WITH BED IN THE LOWEST POSITION AND CALL LIGHT IN REACH;WILL CONTINUE TO MONITOR
--- NOTE | 2021-06-08 10:14 | NUR ---
AT BEDSIDE DISCUSSING POC WITH PT.
[2021-06-08 11:09] VITALS: BP 140/74
--- NOTE | 2021-06-08 11:15 | NUR ---
PT RESTING IN RECLINER;RESPIRATIONS SHALLOW ON O2 @ 7L HF NC;PT DENIES ANY CURRENT PAIN OR NEEDS;TELE MONITORING IN PLACE;IV SITE PATENT;ACCUCHECK 130,NO COVERAGE NEEDED;PT DENIES ANY ADDITIONAL NEEDS AND IS ENCOURAGED TO CALL FOR ASSISTANCE IF NEEDED;FALL PRECAUTIONS IN PLACE WITH CALL LIGHT IN REACH;WILL CONTINUE TO MONITOR
[2021-06-08 15:25] VITALS: BP 156/62
--- NOTE | 2021-06-08 15:30 | NUR ---
PT OOB RESTING IN RECLINER;RESPIRATIONS SHALLOW ON O2 @ 7L HF NC;PT DENIES ANY CURRENT PAIN OR NEEDS;TELE MONITORING IN PLACE;IV SITE PATENT AND ABX COMPLETED AT THIS TIME;PT ENCOURAGED TO CALL FOR ASSISTANCE IF NEEDED;CALL LIGHT IN REACH;WILL CONTINUE TO MONITOR
[2021-06-08 18:00] VITALS: BP 110/76
--- NOTE | 2021-06-08 20:00 | NUR ---
PATIENT AWAKE. NO COMPLAINTS. ALERT AND ORIENTED. HR REG. VAD S/L. ASSESSMENT COMPLETED AND CHARTED. BED IN LOW POSITION. CALL LIGHT WITHIN REACH.
--- NOTE | 2021-06-08 20:00 | NUR ---
PATIENT ALERT AND ORIENTED X3. ABLE TO MAKE NEEDS KNOWN. RESPIRATIONS EVEN AND UNLABORED. DENIES PAIN. ON TELEMETRY. HR REG. VAD #20LAC WAS INFUSING IVABT AND WAS LEAKING AND DC'D. NEW VAD #20 RAC X2 ATTEMPTS. TOLERATED WELL. ASSESSMENT COMPLETED AND CHARTED. BED IN LOW POSITION. CALL LIGHT WITHIN REACH.
[2021-06-09] VITALS: BP 165/64
--- NOTE | 2021-06-09 | NUR ---
RESTING QUIETLY. NO COMPLAINTS. NO ACUTE DISTRESS.
[2021-06-09 04:00] VITALS: BP 154/68
--- NOTE | 2021-06-09 04:33 | NUR ---
RESTING QUIETLY. NO ACUTE DISRESS. BED IN LOW POSITION. CALL LIGHT WITHIN REACH.
[2021-06-09 05:58] LABS: HEMATOCRIT 40.3 % (37.0-47.0); HEMOGLOBIN 13.3 g/dl (12.0-16.0); IMMATURE GRANULOCYTES 0.5 % (0.0-5.0); MEAN CELL VOLUME 97.3 fL CALC (80.0-100.0); MEAN CORPUSCULAR HGB 32.1 pG CALC (26.0-32.0); NEUT# 5.96 thou/uL (2.00-7.15); RED BLOOD COUNT 4.14 mill/uL (4.20-5.60); RED CELL DISTRI WIDTH 12.4 % (11.5-15.5)
[2021-06-09 06:11] LABS: ALBUMIN 3.1 g/dL (3.2-5.0); ALKALINE PHOSPHATASE 96 u/l (38-126); ANION GAP 11 (6-22 (CALC)); BILIRUBIN, TOTAL 0.4 mg/dL (0.0-1.4); BUN 17 mg/dL (8-23); BUN/CREATININE RATIO 31 (12-20 (CALC)); CARBON DIOXIDE 26 mmol/l (22-30); CHLORIDE 105 mmol/l (95-108); CREATININE 0.6 mg/dL (0.5-1.0); GFR > 60 ML/MIN (>=60 (CALC)); GFR FOR AFR.AMER. > 60 ML/MIN (>=60 (CALC)); POTASSIUM 4.3 mmol/l (3.5-5.1); SGOT/AST 56 u/l (9-36); SODIUM 137 mmol/l (137-146); TOTAL PROTEIN 5.7 g/dL (6.3-8.2)
--- NOTE | 2021-06-09 08:00 | NUR ---
PATIENT ALERT, VERBAL, ABLE TO MAKE NEEDS KNOWN. ABLE TO TOLERATE MEDS WELL WHOLE. FSBS ORDERED WITH SSI PRN--NO S/S OF GLYCEMIC REACTION NOTED. PIV SITE PATENT TO LEFT AC AREA--FLUSHES WELL--SITE UNREMARKABLE--SALINE LOCKED. CONT ON IV ABT THERAPY RELATED TO COVID PNEUMONIA WITH NO SIDE EFFECTS NOTED--AFEBRILE. O2 @ 7L/MIN BNC HIGH FLOW. TELEMETRY IN PLACE WITH SR @ 83. CONT OF BOWEL AND BLADDER--OUT OF BED TO BSC AD BENY--ENCOURAGED TO CALL FOR HELP IF NEEDED. DENIES PAIN. WILL CONT TO MONITOR FOR ANY FURTHER CHANGES.
[2021-06-09 10:48] VITALS: BP 145/57
--- NOTE | 2021-06-09 12:00 | NUR ---
PATIENT OUT OF BED IN CHAIR AT BEDSIDE AT THIS TIME. O2 IN PLACE @ 7L/MIN [facility] HIGH FLOW--SATS WNL--SOME EXERTIONAL SOB NOTED THIS SHIFT TO AND FROM BR--ENCOURAGED TO TAKE HER TIME AND TAKE FREQ BREAKS IF NEEDED. PIV SITE PATENT TO LEFT AC--FLUSHES WELL--SITE UNREMARKABLE--SALINE LOCKED. TELEMETRY IN PLACE WITH SR @ 73. NO DISTRESS NOTED. WILL CONT TO MONITOR FOR ANY FURTHER CHANGES.
[2021-06-09 15:03] VITALS: BP 153/68
--- NOTE | 2021-06-09 16:00 | NUR ---
PATIENT REMAINS OUT OF BED IN CHAIR AT BEDSIDE AT THIS TIME. PATIENT C/O NAUSEA A TIMES THATS KEEPING HER FROM EATING AT [facility]--THIS ARMATURE WINDER REPAIR HELPER EXPLAINED TO HER THAT SHE HAD AN ORDER FOR ZOFRAN THAT SHE COULD TAKE BEFORE MEALS TO ALLOW HER TO BE ABLE TO EAT DINNER--PLANNING TO GIVE PATIENT IV ZOFRAN AROUND 5PM--O2 @7L/MIN BNC--HIGH FLOW--MAINTAINING SATS WNL--NO DISTRESS NOTED. ENCOURAGED TO KEEP USING INCENTIVE SPIROMETER MUCH POSSIBLE. PIV SITE PATENT TO LEFT AC--FLUSHES WELL--SITE UNREMARKABLE--SALINE LOCKED. FSBS ORDERED WITH SSI PRN--NO S/S OF GLYCEMIC REACTION NOTED. OFFERS NO COMPLAINTS OF PAIN OR DISCOMFORT. WILL CONT TO MONITOR FOR ANY FURTHER CHANGES.
[2021-06-09 19:38] VITALS: BP 163/65
--- NOTE | 2021-06-09 20:00 | NUR ---
PATIENT AWAKE ALERT AND ORIENTED X3. ABLE TO MAKE NEEDS KNOWN. RESPIRATIONS EVEN AND UNLABORED. 7L HIGH FLOW IN PLACE. ON TELEMETRY. NO COMPLAINTS. SATURATIONS IN THE 90S. ASSESSMENT COMPLETED AND CHARTED. CURRENTLY UP TO CHAIR.
[2021-06-10] VITALS: BP 152/84
--- NOTE | 2021-06-10 01:02 | NUR ---
PATIENT OXYGEN SATURATION 83-88, RT CALLED, RESPONDED, PATIENT O2 INCREASED TO 10L. AFTER REASSESSMENT ABOUT 0030 PT OXYGEN SATURATION NOT APPEARING TO IMPROVE. O2 INCREASED TO 12L, WITH MUCH EFFORT, PATIENT CAN GET IT TO 90-91%, BUT FALLS TO MID 80S IMMEDIATELY AFTER. ASKED PATIENT TO PRONE, WAS SITTING UP IN CHAIR. SOON SHE PRONED, THIS NURSE CHECK O2 SATURATION, 90% INSTANTLY. CURRENTLY RESTING PRONE TO THE RIGHT. PATIENT REPORTS BEING COMFORTABLE AND ABLE TO MAINTAIN THIS SLEEPING POSITION. PATIENT HAS NOT BEEN IN ANY ACUTE DISTRESS. NO SOB, NO DYSPNEA ON EXERTION. BED IN LOW POSITION. CALL LIGHT WITHIN REACH.
--- NOTE | 2021-06-10 04:31 | NUR ---
PATIENT CONTINUES TO PRONE. O2 SATURATION 93%. NO COMPLAINTS. NO SOB. NO LABORED BREATHING. BED IN LOW POSITION. CALL LIGHT WITHIN REACH.
[2021-06-10 04:47] VITALS: BP 150/63
--- NOTE | 2021-06-10 04:49 | NUR ---
PATIENT C/O NAUSEA. ZOFRAN IV GIVEN.
[2021-06-10 05:14] LABS: HEMATOCRIT 40.9 % (37.0-47.0); HEMOGLOBIN 13.3 g/dl (12.0-16.0); IMMATURE GRANULOCYTES 0.9 % (0.0-5.0); MEAN CELL VOLUME 98.1 fL CALC (80.0-100.0); MEAN CORPUSCULAR HGB 31.9 pG CALC (26.0-32.0); MEAN CORPUSCULAR HGB CONC 32.5 g/dL CAL (32.0-36.0); NEUT# 7.84 thou/uL (2.00-7.15); RED BLOOD COUNT 4.17 mill/uL (4.20-5.60); RED CELL DISTRI WIDTH 12.3 % (11.5-15.5)
[2021-06-10 05:34] LABS: ALKALINE PHOSPHATASE 90 u/l (38-126); BUN 17 mg/dL (8-23); BUN/CREATININE RATIO 33 (12-20 (CALC)); C-REACTIVE PROTEIN 1.8 mg/dL (0-0.9); CARBON DIOXIDE 26 mmol/l (22-30); CHLORIDE 106 mmol/l (95-108); CREATININE 0.5 mg/dL (0.5-1.0); GFR > 60 ML/MIN (>=60 (CALC)); GFR FOR AFR.AMER. > 60 ML/MIN (>=60 (CALC)); SGOT/AST 63 u/l (9-36); SODIUM 137 mmol/l (137-146); TOTAL PROTEIN 5.7 g/dL (6.3-8.2)
[2021-06-10 05:35] LABS: ANION GAP 9 (6-22 (CALC)); POTASSIUM 4.4 mmol/l (3.5-5.1)
[2021-06-10 05:42] LABS: BILIRUBIN, TOTAL 0.6 mg/dL (0.0-1.4)
--- NOTE | 2021-06-10 08:00 | NUR ---
PATIENT ALERT, VERBAL, ABLE TO MAKE NEEDS KNOWN. ABLE TO TOLERATE MEDS WELL WHOLE. FSBS ORDERED WITH SSI PRN--NO S/S OF GLYCEMIC REACTION NOTED. PIV SITE PATENT TO LEFT AC--FLUSHES WELL--SITE UNREMARKABLE--SALINE LOCKED. CONT ON IV ABT THERAPY RELATED TO COVID PNEUMONIA WITH NO SIDE EFFECTS NOTED--AFEBRILE. TELEMETRY IN PLACE WITH SR @ 70. CONT OF BOWEL AND BLADDER--OUT OF BED INDEPENDENTLY TO BSC--ENCOURAGED TO CALL FOR ASSIST IF NEEDED. O2 @ 12L/MIN [facility]--SATS THIS AM LYING ON HER LEFT SIDE WERE 82-83%--PATIENT WAS ASKED TO PRONE BEFORE GETTING INTO CHAIR FOR BREKAFAST--SAT 90-91%--PRONING EFFECTIVE. ALSO REQUESTED PRN IV ZOFRAN PRIOR TO EATING BREAKFAST--STATES SHE IS NAUSEAOUS AND NOT ABLE TO EAT WITHOTU TAKING SOMETHING PRIOR TO MEAL--POSIITVE EFFECT--ATE 75% OF BREAKFAST. LS WITH SOME CRACKLES NOTED TO RLL--OTHERWISE CLEAR IN ALL OTHER LOBES. NO APPARENT DISTRESS AT THIS TIME--REMAINS OUT OF BED IN CHAIR AT BEDSIDE--WILL CONT TO MONITOR FOR ANY FURTHER CHANGES.
--- NOTE | 2021-06-10 11:00 | NUR ---
PATIENT'S O2 NEEDS CAN NO LONGER BE MET A THIS TIME IN HER CURRENT LOCATION--O2 SATS 82-83% ON 12L/MIN BNC--HIGH FLOW--TITRATED O2 UP TO 15L/MIN BNC--HIGH FLOW--SATS 94-95%--PRONING BECAME NO LONGER EFFECTIVE EITHER. TRANSFERRED DOWN TO ICU 10 FOR HOLD TO AWAIT AN ICU BED AT THIS TIME.
--- NOTE | 2021-06-10 11:15 | NUR ---
RECEIVED PATIENT FROM MED SURG. PATIENT ALERT AND ORIENTED TIMES THREE. PATIENT DENIES ANY SOB OR DISCOMFORT AT THIS TIME. PATIENT 92% ON 10 LITERS OF O2 AT THIS TIME. CALL LIGHT WITHIN REACH AND INSTRUCTIONS OF HOW TO USE GIVEN. WILL CONTINUE TO MONITOR
--- NOTE | 2021-06-10 11:44 | NUR ---
PATIENT O2 SATURATION DECREASING ON 10 LITERS VIA NASAL CANNULA 89% RESPIRATORY NOTIFIED
--- NOTE | 2021-06-10 12:00 | NUR ---
PT MOVED TO ER BED 10, AOX3, ICU STATUS, ON 15L NC, SATS ARE 94%. NO COMPLAINTS AND CALL LIGHT IN REACH
--- NOTE | 2021-06-10 13:04 | NUR ---
PT BECAME SOB UPON USING BEDSIDE COMODE, IS NOW USING INCENTIVE SPIROMETER AND RESTING AT A 90% ON 15L
--- NOTE | 2021-06-10 15:52 | NUR ---
PT UP TO BEDSIDE COMMODE, AOX3, PLEASANT. CALL LIGHT IN REACH
--- NOTE | 2021-06-10 17:20 | NUR ---
PT TALKING ON PHONE TO FAMILY, VSS WITH NO COMPLAINTS
--- NOTE | 2021-06-10 18:20 | NUR ---
REPORT REC FROM FADI ROBBINS
--- NOTE | 2021-06-10 18:21 | NUR ---
GAVE REPORT TO ICU MAITE RN, PT AWAITING TRANSPORT TO FLOOR
--- NOTE | 2021-06-10 18:55 | NUR ---
PT TRANSPORTED WITH RT AND RN TO ICU, PT ON MONITOR, RECIEVING 15L NC OXYGEN
[2021-06-10 20:00] VITALS: BP 161/61
[2021-06-10 21:00] VITALS: BP 180/72
[2021-06-10 22:00] VITALS: BP 190/74
[2021-06-10 23:00] VITALS: BP 178/71
[2021-06-11] VITALS (16 sets, daily range): BP systolic 139–194; BP diastolic 58–88
--- NOTE | 2021-06-11 07:20 | NUR ---
pt awake in bed; no apparent distress noted; pt offers no complaints; assessment completed at this time; pt alert and oriented; denies pain; no n/v noted; resp even and unlabored; lungs clear/ diminished; skin color wnl; o2 per nc at 15L high flow; firmware software verification engineer dry cough noted; exertional sob noted; hr reg; strong pulses; no edema noted; sr/sb on monitor; abd soft with bs present; no bm noted per video game script writer; pt deny bm x1 week; video game script writer to inform MD; pt noted with purewick; clear yellow urine noted; #20 to lac saline locked; no redness or edema noted at site; plan of care/ am meds explained; pt instructed on IS use and proning; pt able to demonstrate IS use and pull 750ml max x10 reps; call light within reach; will continue to monitor
--- NOTE | 2021-06-11 08:18 | NUR ---
awake in bed; no apparent distress noted; pt offers no complaints; eating breakfast; o2 per nc at 15L high flow; sr on monitor; call light within reach; will continue to monitor
--- NOTE | 2021-06-11 10:05 | NUR ---
awake in bed; po fluids provided; iv intact; o2 per nc at 15L high flow; sr on monitor; call light within reach; will continue to monitor
--- NOTE | 2021-06-11 11:02 | NUR ---
Dr Cantor present at bedside to assess pt and discuss plan
--- NOTE | 2021-06-11 11:20 | NUR ---
o2 titrated to 13L per MD; o2 sat 82-83%; deep breathing encouraged; o2 titrated back to 15L high flow; pt assisted to recliver; will continue to monitor
--- NOTE | 2021-06-11 12:05 | NUR ---
ATTEMPTED TO WEAN O2 ON PATIENT, BUT WAS REQUIRED TO RETURN TO 15 LITER HIGH FLOW NASAL CANNULA. SATS 90%
[2021-06-11 12:18] LABS: HEMATOCRIT 44.2 % (37.0-47.0); HEMOGLOBIN 14.4 g/dl (12.0-16.0); IMMATURE GRANULOCYTES 1.2 % (0.0-5.0); MEAN CELL VOLUME 97.6 fL CALC (80.0-100.0); MEAN CORPUSCULAR HGB 31.8 pG CALC (26.0-32.0); MEAN CORPUSCULAR HGB CONC 32.6 g/dL CAL (32.0-36.0); NEUT# 13.99 thou/uL (2.00-7.15); RED BLOOD COUNT 4.53 mill/uL (4.20-5.60); RED CELL DISTRI WIDTH 12.3 % (11.5-15.5)
--- NOTE | 2021-06-11 12:20 | NUR ---
awake in recliner; offers no complaints; o2 at 15L high flow; iv intact; sr on monitor; will continue to monitor
[2021-06-11 12:33] LABS: ANION GAP 12 (6-22 (CALC)); BUN 20 mg/dL (8-23); BUN/CREATININE RATIO 33 (12-20 (CALC)); CARBON DIOXIDE 24 mmol/l (22-30); CHLORIDE 102 mmol/l (95-108); CREATININE 0.6 mg/dL (0.5-1.0); GFR > 60 ML/MIN (>=60 (CALC)); GFR FOR AFR.AMER. > 60 ML/MIN (>=60 (CALC)); POTASSIUM 4.6 mmol/l (3.5-5.1); SODIUM 134 mmol/l (137-146)
--- NOTE | 2021-06-11 14:00 | NUR ---
awake in bed; no apparent distress noted; o2 per nc at 15: pt observed using IS; sr on monitor; offers no complaints; will continue to monitor
--- NOTE | 2021-06-11 15:49 | NUR ---
PT REMAINS ON HFNC CURRENTLY AT 15 LITERS WITH SATS OF 90%-92%. WEAN ATTEMPTED EARILER, HOWEVER PT DID NOT TOLERATE O2 WEANING.
--- NOTE | 2021-06-11 16:09 | NUR ---
awake in recliner; offers mo complaints; iv flushed and patent; abt infusing without complication; no redness or edema noted at site; sr on monitor; 15L high flow o2; o2 sat 88% currently; call light within reach; will continue to monitor
--- NOTE | 2021-06-11 17:00 | NUR ---
PUREWICK MISPLACED; LG URINARY INCONT NOTED; UNDERWEAR/PAD CHANGED; PUREWICK PLACED
--- NOTE | 2021-06-11 18:11 | NUR ---
awake in recliner eating dinner; no apparent distress noted; pt offers no complaints; iv intact; sr on monitor; o2 per high flow nc; purewick intact; call light within reach
[2021-06-12] VITALS (20 sets, daily range): BP systolic 120–199; BP diastolic 48–87
--- NOTE | 2021-06-12 06:45 | NUR ---
REPORT RECEIVED FROM OPHTHALMIC NURSE. CARE ASSUMED.
--- NOTE | 2021-06-12 08:00 | NUR ---
PT REMAINS ON HFNC AT 15 LITERS. SATS 92%.
--- NOTE | 2021-06-12 08:45 | NUR ---
PATIENT RESTING IN BED AWAKE. PT IS ALERT AND ORIENTED X3. SHIFT ASSESSMENT COMPLETED AT THIS TIME. IV PATENT X1. CALL LIGHT LIGHT IN REACH. WILL CONTINUE TO MONITOR.
--- NOTE | 2021-06-12 10:00 | NUR ---
O2 DECREASED TO 13L AT THIS TIME. PATIENT TOLERATING WELL.
--- NOTE | 2021-06-12 10:00 | NUR ---
O2 DECREASED TO 10LITERS AT THIS TIME. PATIENT TOLERATING WELL.
--- NOTE | 2021-06-12 10:24 | NUR ---
16F CÁRDENAS STARTED. PT TOLERATED WELL. TUBING PATENT FLOWING WITH GRAVITY.300ML CLOUDY YELLOW URINE NOTED.
--- NOTE | 2021-06-12 10:24 | NUR ---
PT REMAINS ON 15 LITER HFNC, WITH SATS AT 92%.
--- NOTE | 2021-06-12 12:00 | NUR ---
PATIENT SITTING UP IN RECLINER AT BEDSIDE RESP ARE EVEN AND UNLABORED. NO DISTRESS NOTED. CALL LIGHT IN REACH. WILL CONTINUE TO MONITOR.
--- NOTE | 2021-06-12 14:45 | NUR ---
PT REMAINS ON 15 LITER HFNC WITH SATS FROM 92%-93%.
--- NOTE | 2021-06-12 15:15 | NUR ---
O2 DECREASED TO 10L AT THIS TIME. PATIENT TOLERATED WELL.
--- NOTE | 2021-06-12 15:35 | NUR ---
PT O2 SATS 86-88% ON O2 @ 10 HF NC, PT TITRATED BACK UP TO 13L HF NC AT THIS TIME. O2 SATS LYNDON TO 92-93%.WILL CONTINUE TO MONITOR
--- NOTE | 2021-06-12 16:00 | NUR ---
PATIENT RESTING IN RECLINER AWAKE. RESP ARE EVEN AND UNALBORED. NO DISTRESS NOTED. CALL LIGHT IN REACH. WILL CONTINUE TO MONITOR.
--- NOTE | 2021-06-12 17:18 | NUR ---
NEW IV STARTED, 20 LFA
--- NOTE | 2021-06-12 18:00 | NUR ---
PATIENT SITTING UP IN RECLINER AT THIS TIME. EATING DINNER. NO DISTRESS NOTED. CALL LIGHT IN REACH. WILL CONTINUE TO MONITOR.
--- NOTE | 2021-06-12 19:23 | NUR ---
SBAR RECEIVED FROM ITZEL HUSTON
--- NOTE | 2021-06-12 20:05 | NUR ---
PATIENT OUT OF BED TO CHAIR CHAIR WATCHING TV. O2 @13L, TOLERATING WELL AT 95%. DENIES PAIN AT THIS TIME. INSTRUCTED ON USE OF INCENTIVE SPIROMETER. CALL LIGHT WITHIN REACH INSTRUCTED TO CALL FOR ASSISTANCE.
--- NOTE | 2021-06-12 23:31 | NUR ---
PATIENT LYING IN PRONE POSITION TOLERATING WELL. O2 AT 13 LITERS HIGH FLOW, SATURATION 98%. PATIENT C/O NAUSEA, ZOFRAN GIVEN. DENIES PAIN AT THIS TIME. CALL LIGHT WITHIN REACH.
[2021-06-13] VITALS (12 sets, daily range): BP systolic 127–184; BP diastolic 58–79
--- NOTE | 2021-06-13 03:59 | NUR ---
RESTING QUIETLY, PATIENT IN PRONE POSITION. CALL LIGHT WITHIN REACH.
[2021-06-13 07:09] LABS: HEMATOCRIT 40.8 % (37.0-47.0); HEMOGLOBIN 13.3 g/dl (12.0-16.0); IMMATURE GRANULOCYTES 2.2 % (0.0-5.0); MEAN CELL VOLUME 97.8 fL CALC (80.0-100.0); MEAN CORPUSCULAR HGB 31.9 pG CALC (26.0-32.0); MEAN CORPUSCULAR HGB CONC 32.6 g/dL CAL (32.0-36.0); NEUT# 8.49 thou/uL (2.00-7.15); RED BLOOD COUNT 4.17 mill/uL (4.20-5.60); RED CELL DISTRI WIDTH 12.2 % (11.5-15.5)
--- NOTE | 2021-06-13 07:09 | NUR ---
SBAR GIVEN TO ITZEL SOLIS.
--- NOTE | 2021-06-13 07:17 | NUR ---
PT IS ON 13L HFNC SAT IS 96% WHILE RESTING IN BED.
[2021-06-13 07:27] LABS: ALBUMIN 2.9 g/dL (3.2-5.0); ALKALINE PHOSPHATASE 80 u/l (38-126); BILIRUBIN, TOTAL 0.6 mg/dL (0.0-1.4); BUN 18 mg/dL (8-23); BUN/CREATININE RATIO 31 (12-20 (CALC)); CHLORIDE 105 mmol/l (95-108); CREATININE 0.6 mg/dL (0.5-1.0); GFR > 60 ML/MIN (>=60 (CALC)); GFR FOR AFR.AMER. > 60 ML/MIN (>=60 (CALC)); POTASSIUM 4.3 mmol/l (3.5-5.1); SGOT/AST 35 u/l (9-36); SODIUM 137 mmol/l (137-146); TOTAL PROTEIN 5.5 g/dL (6.3-8.2)
[2021-06-13 07:30] LABS: ANION GAP 7 (6-22 (CALC)); CARBON DIOXIDE 29 mmol/l (22-30)
--- NOTE | 2021-06-13 09:11 | NUR ---
PT IS AWAKE, ALERT, ORIENTED X 3. LUNGS ARE CLEAR BUT DIMINISHED THROUGHOUT, USING 13 LPM NC NOW. PT STATES BM YESTERDAY. PT USING IS EVERY HOUR, STATES THAT SHE IS DOING HER BEST TO GET BETTER.
--- NOTE | 2021-06-13 11:24 | NUR ---
PT IS SITTING IN CHAIR, SAT IS 93% ON 13l
--- NOTE | 2021-06-13 16:35 | NUR ---
PT ON 13 LITER HFNC SATS 92%
--- NOTE | 2021-06-13 17:58 | NUR ---
PT HAS BEEN OOB IN CHAIR FOR MUCH OF THE DAY. SHE IS DRIVEN TO DO WHATEVER IS ASKED OF HER TO IMPROVE. IS AT BEDSIDE, PT USES OFTEN. OXYGEN TURNED DOWN TO 10 LPM NC, SEEN AT 98%.
--- NOTE | 2021-06-13 19:40 | NUR ---
[id number] SBAR REPORT RECEIVED FROM ITZEL SOLIS. PATIENT OUT OF BED TO CHAIR, TOLERATING WELL. DENIES PAIN AT THIS TIME, CALL LIGHT WITHIN REACH.
--- NOTE | 2021-06-13 22:46 | NUR ---
RESTING QUIETLY IN BED, PRONE POSITION. TOLERATING WELL. NO DISTRESS NOTED. CALL LIGHT WITHIN REACH.
[2021-06-14] VITALS (22 sets, daily range): BP systolic 116–173; BP diastolic 50–90
--- NOTE | 2021-06-14 00:44 | NUR ---
RESTING QUIETLY EYES CLOSED. PATIENT IN PRONE POSITION, TOLERATING WELL. BED IN LOW POSITION, LOCKED. O2 @ 10 LITERS HIGH FLOW, SATURATION 97%. NO DISTRESS NOTED AT THIS TIME CALL LIGHT WITHIN REACH.
--- NOTE | 2021-06-14 06:36 | NUR ---
PATIENT ASSISTED OUT OF BED TO CHAIR, TOLERATED WELL. C[place] TO GRAVITY, PATENT. SATURATION 91%, NO DISTRESS NOTED. CALL LIGHT WITHIN REACH.
[2021-06-14 06:52] LABS: ALBUMIN 3.1 g/dL (3.2-5.0); ALKALINE PHOSPHATASE 76 u/l (38-126); ANION GAP 10 (6-22 (CALC)); BILIRUBIN, TOTAL 0.6 mg/dL (0.0-1.4); BUN 20 mg/dL (8-23); BUN/CREATININE RATIO 34 (12-20 (CALC)); CARBON DIOXIDE 30 mmol/l (22-30); CHLORIDE 104 mmol/l (95-108); CREATININE 0.6 mg/dL (0.5-1.0); GFR > 60 ML/MIN (>=60 (CALC)); GFR FOR AFR.AMER. > 60 ML/MIN (>=60 (CALC)); POTASSIUM 4.9 mmol/l (3.5-5.1); SGOT/AST 38 u/l (9-36); SODIUM 138 mmol/l (137-146); TOTAL PROTEIN 5.8 g/dL (6.3-8.2)
[2021-06-14 06:58] LABS: HEMATOCRIT 42.9 % (37.0-47.0); HEMOGLOBIN 13.8 g/dl (12.0-16.0); MEAN CELL VOLUME 98.4 fL CALC (80.0-100.0); MEAN CORPUSCULAR HGB 31.7 pG CALC (26.0-32.0); MEAN CORPUSCULAR HGB CONC 32.2 g/dL CAL (32.0-36.0); NEUT# 8.16 thou/uL (2.00-7.15); RED BLOOD COUNT 4.36 mill/uL (4.20-5.60); RED CELL DISTRI WIDTH 12.1 % (11.5-15.5)
--- NOTE | 2021-06-14 07:37 | NUR ---
O2 SAT ON 10L HFNC IS 91%.
--- NOTE | 2021-06-14 08:37 | NUR ---
PT SEEN OOB IN CHAIR AT BEDSIDE, 10 LPM NC. SATS IN THE LOW 90s. LUNGS WITH FINE SCATTERED CRACKLES. PT USING INCENTIVE SPIROMETER APPROPRIATELY, STATES THAT SHE WANTS TO EVERYTHING SHE CAN TO GET BETTER SOON.
--- NOTE | 2021-06-14 10:33 | NUR ---
PT DOWN TO 8 LPM, SATS 95%. PT SEEN BY DR HANCOCK, POSSIBLE TRANSFER TO MED/SURG.
--- NOTE | 2021-06-14 13:02 | NUR ---
PT CONTINUES OOB IN CHAIR. OXYGEN TURNED DOWN TO 8 LPM NC, PT SATS ARE 94%.
--- NOTE | 2021-06-14 18:24 | NUR ---
PT STILL IN CHAIR, WHERE SHE HAS BEEN FOR THE DAY. OXYGEN TURNED DOWN TO 6 LPM NC AND PT CONTINUES IN THE LOW TO MID 90s. PT FEELS WELL.
--- NOTE | 2021-06-14 19:13 | NUR ---
SBAR REPORT RECEIVED FROM ITZEL SOLIS.
[2021-06-15] VITALS (13 sets, daily range): BP systolic 106–195; BP diastolic 53–87
--- NOTE | 2021-06-15 00:58 | NUR ---
RESTING IN BED, PRONE POSITION TOLERATING WELL. NO DISTRESS NOTED CALL LIGHT WITHIN REACH.
--- NOTE | 2021-06-15 04:33 | NUR ---
RESTING QUIETLY EYES CLOSED. PRONE POSITION. DENIES PAIN AT THIS TIME. NO DISTRESS NOTED. CALL LIGHT WITHIN REACH.
[2021-06-15 06:58] LABS: HEMATOCRIT 40.5 % (37.0-47.0); HEMOGLOBIN 13.3 g/dl (12.0-16.0); IMMATURE GRANULOCYTES 2.7 % (0.0-5.0); MEAN CELL VOLUME 97.8 fL CALC (80.0-100.0); MEAN CORPUSCULAR HGB 32.1 pG CALC (26.0-32.0); MEAN CORPUSCULAR HGB CONC 32.8 g/dL CAL (32.0-36.0); NEUT# 8.86 thou/uL (2.00-7.15); RED BLOOD COUNT 4.14 mill/uL (4.20-5.60); RED CELL DISTRI WIDTH 12.2 % (11.5-15.5)
[2021-06-15 07:04] LABS: ALBUMIN 2.9 g/dL (3.2-5.0); ALKALINE PHOSPHATASE 72 u/l (38-126); ANION GAP 9 (6-22 (CALC)); BILIRUBIN, TOTAL 0.5 mg/dL (0.0-1.4); BUN 20 mg/dL (8-23); BUN/CREATININE RATIO 31 (12-20 (CALC)); CARBON DIOXIDE 29 mmol/l (22-30); CHLORIDE 102 mmol/l (95-108); CREATININE 0.6 mg/dL (0.5-1.0); GFR > 60 ML/MIN (>=60 (CALC)); GFR FOR AFR.AMER. > 60 ML/MIN (>=60 (CALC)); POTASSIUM 4.3 mmol/l (3.5-5.1); SGOT/AST 34 u/l (9-36); SODIUM 136 mmol/l (137-146); TOTAL PROTEIN 5.5 g/dL (6.3-8.2)
--- NOTE | 2021-06-15 07:55 | NUR ---
PT ON 6L NC. KOBI WELL AT THIS TIME. NO RT TINTERVENTION NEEDED.
--- NOTE | 2021-06-15 09:42 | NUR ---
PT IS AWAKE, ALERT, ORIENTED X 3. LUNGS CLEAR, DECREASED IN THE BASES, CONTINUES WELL ON 6 LPM NC. PT ABLE TO TRANSFER TO CHAIR WITHOUT DIFFICULTY THIS MORNING. PT SEEN BY DR HANCOCK. SHE CAN BE TRANSFERRED TO MED/SURG WHEN BED BECOMES AVAILABLE.
--- NOTE | 2021-06-15 11:54 | NUR ---
C[employer]RDENAS CATHETER REMOVED THIS MORNING WITHOUT INCIDENT. PT CONTINUES WITH LUNG EXERCIZES BEST THAT SHE CAN WHILE IN CHAIR.
--- NOTE | 2021-06-15 15:41 | NUR ---
PT NOW ON 5 LPM NC, DOING WELL. SHE CONTINUES TO EXERCIZE HER LUNGS CONSTANTLY USING INCENTIVE SPIROMETER AND DEEP BREATHING.
--- NOTE | 2021-06-15 16:51 | NUR ---
REPORT PROVIDED TO ORLY GARCIA, PT TO 283.
--- NOTE | 2021-06-15 17:05 | NUR ---
REPORT FROM IRMA ROBBINS. PT TRANSFERED TO ROOM 283 VIA WHEELCHAIR. PT ALERT AND ORIENTED X4. ON 5L/M VIA NC. NO APPARENT DISTRESS OR SOB NOTED. PT DENIES ANY CURRENT WANTS OR NEEDS. PT PLACED ON CHANNEL SALES DIRECTOR. CALL LIGHT WITHIN REACH. ORIENTED TO ROOM. WILL CONTINUE TO MONITOR.
--- NOTE | 2021-06-15 18:02 | NUR ---
CLEMENTINA ROBBINS AT BEDSIDE TO ADMINISTERED IV APRESOLINE FOR BP 195/87. WILL CONTINUE TO MONITOR.
--- NOTE | 2021-06-15 20:05 | NUR ---
PT UP IN CHAIR, REPORT RECEIVED FROM DAY SHIFT NURSE, ASSUMED CARE. O2 REMAINS AT 5L VIA NC. PT TOLERATING WELL. NO SOB OR RESP DISTRESS NOTED AT THIS TIME. PT IS INDEPENDENTLY CARING FOR HER HYGIENE NEEDS, DOES NOT REQUEST A LOT OF ASSISTANCE WITH ADLS. IV CONTINUES TO LFA-#20, SALINE LOCKED. FLUSHES EASILY. SAFETY PRECAUTIONS IN PLACE, BED IN LOW POSITION, CALL LIGHT WITHIN REACH. WILL CONTINUE TO MONITOR.
[2021-06-16] VITALS: BP 156/67
--- NOTE | 2021-06-16 00:10 | NUR ---
PT RESTING PRONE IN HER BED. NO S/S OF RESP DISTRESS NOTED. BREATHING IS EVEN AND UNLABORED. SAFETY PRECAUTIONS REMAIN IN PLACE. WILL MONITOR
[2021-06-16 04:00] VITALS: BP 169/70
--- NOTE | 2021-06-16 04:05 | NUR ---
PT CONTINUES TO REST IN BED IN PRONE POSITION, NO S/S OF RESP DISTRESS AT THIS TIME. NO COMPLAINTS VOICED. SAFETY PRECAUTIONS REMAIN IN PLACE, WILL MONITOR
[2021-06-16 06:19] LABS: HEMATOCRIT 40.2 % (37.0-47.0); HEMOGLOBIN 13.4 g/dl (12.0-16.0); IMMATURE GRANULOCYTES 2.8 % (0.0-5.0); MEAN CELL VOLUME 98.3 fL CALC (80.0-100.0); MEAN CORPUSCULAR HGB 32.8 pG CALC (26.0-32.0); MEAN CORPUSCULAR HGB CONC 33.3 g/dL CAL (32.0-36.0); NEUT# 9.28 thou/uL (2.00-7.15); RED BLOOD COUNT 4.09 mill/uL (4.20-5.60); RED CELL DISTRI WIDTH 12.3 % (11.5-15.5)
[2021-06-16 07:10] LABS: ALBUMIN 2.9 g/dL (3.2-5.0); ALKALINE PHOSPHATASE 67 u/l (38-126); ANION GAP 11 (6-22 (CALC)); BILIRUBIN, TOTAL 0.5 mg/dL (0.0-1.4); BUN 20 mg/dL (8-23); BUN/CREATININE RATIO 29 (12-20 (CALC)); CARBON DIOXIDE 29 mmol/l (22-30); CHLORIDE 102 mmol/l (95-108); CREATININE 0.7 mg/dL (0.5-1.0); GFR > 60 ML/MIN (>=60 (CALC)); GFR FOR AFR.AMER. > 60 ML/MIN (>=60 (CALC)); POTASSIUM 4.7 mmol/l (3.5-5.1); SGOT/AST 38 u/l (9-36); SODIUM 137 mmol/l (137-146); TOTAL PROTEIN 5.4 g/dL (6.3-8.2)
--- NOTE | 2021-06-16 07:15 | NUR ---
REPORT FROM SHARATH GARCIA. ASSUMED PT CARE.
--- NOTE | 2021-06-16 08:01 | NUR ---
ASSISTED PT OOB INTO CHAIR FOR BREAKFAST, STAND BY ASSIST. PT AMBULATED WITH STEADY GAIT. NO APPARENT DISTRESS NOTED. RESPIRATIONS EVEN AND UNLABORED. APPLIED HUMIDIFICATION TO O2. CURRENT SAT 93% ON 5L/M VIA NC. PT DENIES ANY PAIN OR SOB. CALL LIGHT WITHIN REACH. WILL CONTINUE TO MONITOR.
[2021-06-16 10:21] VITALS: BP 123/59
[2021-06-16 11:15] VITALS: BP 144/67
--- NOTE | 2021-06-16 11:24 | NUR ---
PHYSICIAN AT BEDSIDE TO DISCUSS POC.
--- NOTE | 2021-06-16 12:44 | NUR ---
SIT 6 WALK TEST PERFORMED PT AT REST ON RA DROPPED TO 87% IN 5 MINUTES TIME. CASE MANAGEMENT NOTIFIED. PT PLACED BACK ON 5L/M VIA NC. SAT IMPROVED SLOWLY TO 93%. CALL LIGHT WITHIN REACH. WILL CONTINUE TO MONITOR.
[2021-06-16] MEDS ORDERED: MEDDOSEPAK PO (15:09)
[2021-06-16] MEDS ORDERED: ASPIRIN REGULA325 M1 PO (15:09)
[2021-06-16] MEDS ORDERED: VENTOLIN HFA108 MCG IN (15:14)
--- NOTE | 2021-06-16 15:58 | NUR ---
PT note Patient is able to ambulate in room with SBA of [address] She had vitals stable. She presented on 5 l O2 and remained saturated throughout the treatment. She also worked on 4 sec breath holds and forced expiration as well as incentive spirometer. Am Pac is 19 indicating she would do well with HH intervention Our plan is to continue progressing to independence
[2021-06-16] MEDS ORDERED: ZOFRAN4 MG/TAB PO (16:32)
--- NOTE | 2021-06-16 17:40 | NUR ---
IV site discontinued, cath intact. No edema , no redness, voices no discomfort.
--- NOTE | 2021-06-16 17:48 | NUR ---
Discharge instructions given. Patient verbalizes understanding of same. Discharged in stable condition via Wheelchair to Home with family. All belongings sent with pt.
--- NOTE | 2021-06-16 17:48 | NUR ---
PT TRANSFERED IN STABLE CONDITION VIA WHEELCHAIR TO [employer] [facility]LE. PT LEFT ON 4L/M VIA NC O2 AND ALL BELONGINGS.
== END 2021-06-16 17:45 | disposition home health service (06) | DRG 177 ==
LOC: ED 14:44 → ED-I 18:25 → ED 18:36 → MS2 18:37 → ED-I 22:18 → MS2 23:06 → ED-I 06-10 11:07 → ICU 06-10 17:45 → MS2 06-15 17:25
PROVIDERS: Hospitalist; Nurse Practitioner; ADMIT Internal Medicine; ATTEND Internal Medicine
PROC: XW033E5 Introduction of Remdesivir Anti-infective into Peripheral Vein, Percutaneous Approach, New Technology Group 5 (ICD-10-PCS; principal; 2021-06-06)
PROC: 0T9B70Z Drainage of Bladder with Drainage Device, Via Natural or Artificial Opening (ICD-10-PCS; 2021-06-12)
DX: U07.1 COVID-19 (principal); J12.82 Pneumonia due to coronavirus disease 2019; G93.41 Metabolic encephalopathy; R09.02 Hypoxemia; R00.1 Bradycardia, unspecified; I10 Essential (primary) hypertension; E11.9 Type 2 diabetes mellitus without complications; K21.9 Gastro-esophageal reflux disease without esophagitis; N32.81 Overactive bladder; E78.5 Hyperlipidemia, unspecified; Z87.891 Personal history of nicotine dependence
CPT/HCPCS: J1650; Q9967

== ENCOUNTER 2023-02-04 10:25 | Observation (INO) | payer MEDICARE, OTHER ==
[~2023-02-04] VITALS: Ht 165.1 cm; Wt 72.5 kg
[~2023-02-04 10:25] MED LIST changes: +ASPIRIN REGULA325 M1 PO; +COZAAR25 MG PO; +FAMOTIDINE20 M3 PO; +FLUOCINONIDE0.053 EX; +HYDROCORT2.5 % EX; +MEDDOSEPAK PO; +VENTOLIN HFA108 MCG IN; +ZOFRAN4 MG/TAB PO
[2023-02-04 10:50] LABS: BASO% 0.3 % (0-3); EOS% 8.2 % (0-8); HEMATOCRIT 45.3 % (37.0-47.0); HEMOGLOBIN 14.4 g/dl (12.0-16.0); LYMPH% 32.9 % (15-41); MEAN CELL VOLUME 99.3 fL CALC (80.0-100.0); MEAN CORPUSCULAR HGB 31.6 pG CALC (26.0-32.0); MEAN CORPUSCULAR HGB CONC 31.8 g/dL CAL (32.0-36.0); NEUT# 3.1 thou/uL (2.00-7.15); NEUT% 51.6 % (42-76); RED BLOOD COUNT 4.56 mill/uL (4.20-5.60)
[2023-02-04 11:00] LABS: ALBUMIN 4.4 g/dL (3.2-5.0); ALKALINE PHOSPHATASE 72 u/l (38-126); ANION GAP 13 (6-22 (CALC)); BILIRUBIN, TOTAL 0.7 mg/dL (0.02-1.3); BUN 19 mg/dL (8-23); BUN/CREATININE RATIO 23 (12-20 (CALC)); CARBON DIOXIDE 26 mmol/l (22-30); CHLORIDE 104 mmol/l (95-108); CREATININE 0.8 mg/dL (0.5-1.0); GFR FOR AFR.AMER. > 60 ML/MIN (>=60 (CALC)); GFR OTHER RACES > 60 ML/MIN (>=60 (CALC)); POTASSIUM 4.1 mmol/l (3.5-5.1); SGOT/AST 46 u/l (9-36); SODIUM 139 mmol/l (137-146); TOTAL PROTEIN 7.1 g/dL (6.3-8.2)
[2023-02-04 14:51] VITALS: BP 138/60
[2023-02-04 18:24] VITALS: BP 157/68
[2023-02-04 23:57] VITALS: BP 142/71
[2023-02-05 01:59] LABS: BASO% 0.4 % (0-3); EOS% 6.5 % (0-8); HEMOGLOBIN 13.4 g/dl (12.0-16.0); LYMPH% 28.2 % (15-41); MEAN CELL VOLUME 98.1 fL CALC (80.0-100.0); MEAN CORPUSCULAR HGB 31.3 pG CALC (26.0-32.0); MEAN CORPUSCULAR HGB CONC 31.9 g/dL CAL (32.0-36.0); MONO% 5.6 % (2-13); NEUT# 4.61 thou/uL (2.00-7.15); NEUT% 59.3 % (42-76); RED BLOOD COUNT 4.28 mill/uL (4.20-5.60)
[2023-02-05 02:17] LABS: ALBUMIN 3.8 g/dL (3.2-5.0); ALKALINE PHOSPHATASE 68 u/l (38-126); ANION GAP 10 (6-22 (CALC)); BUN 19 mg/dL (8-23); BUN/CREATININE RATIO 25 (12-20 (CALC)); CALCULATED LDLCHOLESTEROL 64 mg/dL (62-129 (CALC)); CARBON DIOXIDE 24 mmol/l (22-30); CHLORIDE 109 mmol/l (95-108); CHOLESTEROL HDL RATIO 2.8 (<4.4 (CALC)); CREATININE 0.8 mg/dL (0.5-1.0); GFR FOR AFR.AMER. > 60 ML/MIN (>=60 (CALC)); GFR OTHER RACES > 60 ML/MIN (>=60 (CALC)); HDL CHOLESTEROL 53 mg/dL (39.0-59.0); POTASSIUM 3.8 mmol/l (3.5-5.1); SGOT/AST 30 u/l (9-36); SODIUM 140 mmol/l (137-146); TOTAL CHOLESTEROL 148 mg/dl (0-199); TOTAL TRIGLYCERIDES 159 mg/dl (0-149); VLDL CHOLESTROL 32 mg/dl (0-48 (CALC))
[2023-02-05 02:18] LABS: BILIRUBIN, TOTAL 0.2 mg/dL (0.02-1.3)
[2023-02-05 04:44] VITALS: BP 125/54
[2023-02-05 06:21] VITALS: BP 108/88
[2023-02-05] MEDS ORDERED: PROTONIX40 M2 PO (08:14)
[2023-02-05] MEDS ORDERED: MAGNESIUM500 M1 PO (08:15)
[2023-02-05] MEDS ORDERED: B121000 MC1 PO (08:16)
[2023-02-05 10:23] VITALS: BP 127/50
[2023-02-05 12:10] VITALS: BP 127/50
[2023-02-05 13:56] LABS: URINE BILIRUBIN - DIPSTICK NEGATIVE (NEGATIVE); URINE BLOOD DIPSTICK NEGATIVE (NEGATIVE); URINE COLOR YELLOW; URINE GLUCOSE - DIPSTICK NEGATIVE (NEGATIVE); URINE KETONE NEGATIVE (NEGATIVE); URINE LEUK ESTERASE NEGATIVE (NEGATIVE); URINE PROTEIN - DIPSTICK NEGATIVE (NEG-TRACE); URINE UROBILINOGEN - DIPSTICK 0.2 E.U./dL (0.2)
[2023-02-05 14:02] LABS: URINE NITRITE - DIPSTICK NEGATIVE (Negative)
[2023-02-05 14:27] VITALS: BP 129/49
== END 2023-02-05 15:16 | disposition home or self-care (01) ==
LOC: ED 10:25 → ED-I 12:55 → ED 13:10 → MS2 13:11
PROVIDERS: Family Medicine; Nurse Practitioner Family; ADMIT Internal Medicine; ATTEND Internal Medicine
DX: R07.9 Chest pain, unspecified (principal); I10 Essential (primary) hypertension; E11.9 Type 2 diabetes mellitus without complications; I48.91 Unspecified atrial fibrillation; E78.5 Hyperlipidemia, unspecified; K21.9 Gastro-esophageal reflux disease without esophagitis; Z79.84 Long term (current) use of oral hypoglycemic drugs; Z87.891 Personal history of nicotine dependence
CPT/HCPCS: J1650

== ENCOUNTER 2023-10-10 08:59 | Inpatient (IN) | payer MEDICARE, OTHER ==
[2023-10-10] VITALS (34 sets, daily range): BP systolic 94–184; BP diastolic 46–143
[~2023-10-10] VITALS: Ht 165.1 cm; Wt 87.9 kg
[~2023-10-10 08:59] MED LIST changes: +B121000 MC1 PO; +MAGNESIUM500 M1 PO
[2023-10-10 09:46] LABS: BASO% 0.5 % (0-3); EOS% 3.4 % (0-8); HEMATOCRIT 46.7 % (37.0-47.0); HEMOGLOBIN 15.1 g/dl (12.0-16.0); IMMATURE GRANULOCYTES 0.2 % (0.0-5.0); LYMPH% 37.6 % (15-41); MEAN CELL VOLUME 100.9 fL CALC (80.0-100.0); MEAN CORPUSCULAR HGB 32.6 pG CALC (26.0-32.0); MEAN CORPUSCULAR HGB CONC 32.3 g/dL CAL (32.0-36.0); MONO% 7.4 % (2-13); NEUT# 2.97 thou/uL (2.00-7.15); NEUT% 50.9 % (42-76); RED BLOOD COUNT 4.63 mill/uL (4.20-5.60); RED CELL DISTRI WIDTH 12.5 % (11.5-15.5)
[2023-10-10 09:48] LABS: URINE BILIRUBIN - DIPSTICK Negative (NEGATIVE); URINE BLOOD DIPSTICK Negative (NEGATIVE); URINE GLUCOSE - DIPSTICK Negative (NEGATIVE); URINE KETONE Negative (NEGATIVE); URINE LEUK ESTERASE Negative (NEGATIVE); URINE NITRITE - DIPSTICK Negative (Negative); URINE PROTEIN - DIPSTICK Negative (NEG-TRACE); URINE UROBILINOGEN - DIPSTICK 0.2 E.U./dL (0.2)
[2023-10-10 09:57] LABS: URINE COLOR Yellow
[2023-10-10 09:59] LABS: ALBUMIN 4.4 g/dL (3.2-5.0); ALKALINE PHOSPHATASE 77 u/l (38-126); ANION GAP 14 (6-22 (CALC)); BILIRUBIN, TOTAL 0.7 mg/dL (0.02-1.3); BUN 15 mg/dL (8-23); BUN/CREATININE RATIO 20 (12-20 (CALC)); CARBON DIOXIDE 24 mmol/l (22-30); CHLORIDE 108 mmol/l (95-108); CREATININE 0.7 mg/dL (0.5-1.0); GFR FOR AFR.AMER. > 60 ML/MIN (>=60 (CALC)); GFR OTHER RACES > 60 ML/MIN (>=60 (CALC)); POTASSIUM 3.6 mmol/l (3.5-5.1); SGOT/AST 45 u/l (9-36); SODIUM 142 mmol/l (137-146); TOTAL PROTEIN 7.1 g/dL (6.3-8.2)
[2023-10-10 10:00] LABS: ACT PARTIAL THROMBO TIME 24.7 SECONDS (20.0-32.5); INTERNATIONAL NORMALIZED RATIO 0.9 RATIO (0.7-1.3)
[2023-10-10 10:01] LABS: PROTHROMBIN TIME 8.8 SECONDS (9.0-12.5)
[2023-10-10 10:37] LABS: TSH, 3RD GENERATION 1.43 uIU/mL (0.47 - 4.68)
[2023-10-10] MEDS ORDERED: GABAPENTIN300 M2 (12:07)
[2023-10-11] VITALS (13 sets, daily range): BP systolic 89–131; BP diastolic 37–84
[2023-10-11 06:00] LABS: BASO% 0.4 % (0-3); EOS% 3.3 % (0-8); HEMATOCRIT 40.8 % (37.0-47.0); HEMOGLOBIN 13.3 g/dl (12.0-16.0); IMMATURE GRANULOCYTES 0.1 % (0.0-5.0); LYMPH% 38.4 % (15-41); MEAN CELL VOLUME 99.8 fL CALC (80.0-100.0); MEAN CORPUSCULAR HGB 32.5 pG CALC (26.0-32.0); MEAN CORPUSCULAR HGB CONC 32.6 g/dL CAL (32.0-36.0); MONO% 7.6 % (2-13); NEUT# 3.54 thou/uL (2.00-7.15); NEUT% 50.2 % (42-76); RED BLOOD COUNT 4.09 mill/uL (4.20-5.60); RED CELL DISTRI WIDTH 12.7 % (11.5-15.5)
[2023-10-11 06:14] LABS: ALKALINE PHOSPHATASE 68 u/l (38-126); ANION GAP 11 (6-22 (CALC)); BILIRUBIN, TOTAL 0.8 mg/dL (0.02-1.3); BUN 15 mg/dL (8-23); BUN/CREATININE RATIO 22 (12-20 (CALC)); CARBON DIOXIDE 23 mmol/l (22-30); CHLORIDE 109 mmol/l (95-108); CREATININE 0.7 mg/dL (0.5-1.0); GFR FOR AFR.AMER. > 60 ML/MIN (>=60 (CALC)); GFR OTHER RACES > 60 ML/MIN (>=60 (CALC)); MAGNESIUM 2.1 mg/dL (1.6-2.3); POTASSIUM 3.6 mmol/l (3.5-5.1); SGOT/AST 38 u/l (9-36); SODIUM 139 mmol/l (137-146)
[2023-10-11 06:16] LABS: ALBUMIN 3.4 g/dL (3.2-5.0); TOTAL PROTEIN 5.6 g/dL (6.3-8.2)
[2023-10-11] MEDS ORDERED: LOPRESSOR25 MG PO (09:20)
[2023-10-11] MEDS ORDERED: XARELTO10 MG PO (09:20)
== END 2023-10-11 11:10 | disposition home or self-care (01) | DRG 310 ==
LOC: ED 08:59 → ED-I 10:48 → ED 10:49 → ED-I 10:50 → ICU 10:50
PROVIDERS: Emergency Medicine; ADMIT Student in an Organized Health Care Education/Training Program; ATTEND Student in an Organized Health Care Education/Training Program
DX: I48.91 Unspecified atrial fibrillation (principal); I10 Essential (primary) hypertension; E11.42 Type 2 diabetes mellitus with diabetic polyneuropathy; E78.5 Hyperlipidemia, unspecified; R00.1 Bradycardia, unspecified; K21.9 Gastro-esophageal reflux disease without esophagitis; Z86.16 Personal history of COVID-19; Z79.84 Long term (current) use of oral hypoglycemic drugs; Z87.19 Personal history of other diseases of the digestive system; Z87.891 Personal history of nicotine dependence

== ENCOUNTER 2024-07-11 21:04 | Inpatient (IN) | payer MEDICARE, OTHER ==
[~2024-07-11] VITALS: Ht 165.1 cm; Wt 86.3 kg
[~2024-07-11 21:04] MED LIST changes: +FAMOTIDINE20 M1 PO; +GABAPENTIN300 M2; +LOPRESSOR25 MG PO; +XARELTO10 MG PO
[2024-07-11 21:23] VITALS: BP 181/71
[2024-07-11] MEDS ORDERED: ONDANSETRON HCl 4 MG/2 ML SDV IV STA (21:39)
[2024-07-11 21:49] VITALS: BP 148/57
[2024-07-11 22:09] LABS: BASO% 0.2 % (0-3); EOS% 1.6 % (0-8); HEMATOCRIT 42.8 % (37.0-47.0); HEMOGLOBIN 13.6 g/dl (12.0-16.0); IMMATURE GRANULOCYTES 0.4 % (0.0-5.0); LYMPH% 25.5 % (15-41); MEAN CELL VOLUME 99.3 fL CALC (80.0-100.0); MEAN CORPUSCULAR HGB 31.6 pG CALC (26.0-32.0); MEAN CORPUSCULAR HGB CONC 31.8 g/dL CAL (32.0-36.0); MONO% 7.6 % (2-13); NEUT# 6.48 thou/uL (2.00-7.15); NEUT% 64.7 % (42-76); RED BLOOD COUNT 4.31 mill/uL (4.20-5.60); RED CELL DISTRI WIDTH 12.9 % (11.5-15.5)
[2024-07-11 22:16] VITALS: BP 159/63
[2024-07-11 22:21] LABS: ALKALINE PHOSPHATASE 55 u/l (38-126); AMYLASE 400 u/l (30-110); ANION GAP 6 (6-22 (CALC)); BILIRUBIN, TOTAL 0.6 mg/dL (0.02-1.3); BUN 21 mg/dL (8-23); BUN/CREATININE RATIO 30 (12-20 (CALC)); CARBON DIOXIDE 26 mmol/l (22-30); CHLORIDE 110 mmol/l (95-108); CREATININE 0.7 mg/dL (0.5-1.0); ESTIMATED GFR 90 ML/MIN (>=90 (CALC)); POTASSIUM 4.4 mmol/l (3.5-5.1); SGOT/AST 33 u/l (9-36); SODIUM 137 mmol/l (137-146); TOTAL PROTEIN 6.6 g/dL (6.3-8.2)
[2024-07-11] MEDS ORDERED: HYDROmorphone HCL 2 MG/AMP IV ONE (22:25)
[2024-07-11 22:38] LABS: LIPASE > 4000 u/l (23-300)
[2024-07-11 22:47] LABS: URINE BILIRUBIN - DIPSTICK Negative (NEGATIVE); URINE BLOOD DIPSTICK Negative (NEGATIVE); URINE GLUCOSE - DIPSTICK Negative (NEGATIVE); URINE KETONE Negative (NEGATIVE); URINE NITRITE - DIPSTICK Negative (Negative); URINE PH 6.5 (4.5-8.0); URINE PROTEIN - DIPSTICK Negative (NEG-TRACE); URINE UROBILINOGEN - DIPSTICK 0.2 E.U./dL (0.2)
[2024-07-11 22:48] LABS: URINE COLOR Yellow; URINE LEUK ESTERASE Small (NEGATIVE)
[2024-07-11 22:54] LABS: URINE WBC 0-2 WBC/hpf (0-5)
[2024-07-11 23:07] VITALS: BP 146/54
[2024-07-12] VITALS (13 sets, daily range): BP systolic 121–196; BP diastolic 53–76
[2024-07-12] MEDS ORDERED: ONDANSETRON HCl 4 MG/2 ML SDV IV ONE (00:50)
[2024-07-12] MEDS ORDERED: ACETAMINOPHEN 325 MG/TAB PO PRN (01:10)
[2024-07-12] MEDS ORDERED: SODIUM CHLORIDE 0.9% 1,000 ML IV PRN (01:10)
[2024-07-12] MEDS ORDERED: MAGNESIUM HYDROXIDE 30 ML UDC PO PRN (01:10)
[2024-07-12] MEDS ORDERED: HYDROmorphone HCL 2 MG/AMP IV ONE (02:05)
[2024-07-12] MEDS ORDERED: PANTOPRAZOLE SODIUM Sesquihydr 40 MG/TAB PO SCH (09:30)
[2024-07-12] MEDS ORDERED: LOSARTAN Potassium 25 MG/TAB PO SCH (09:30)
[2024-07-12] MEDS ORDERED: DiphenhydrAMINE HCL 25 MG CPLT PO SCH (10:30)
[2024-07-12] MEDS ORDERED: DEXTROSE 250 ML IV PRN (10:35)
[2024-07-12] MEDS ORDERED: INSULIN LISPRO 100 UNITS/ML ML SC SCH (11:00)
[2024-07-12] MEDS ORDERED: RIVAROXABAN 20 MG TAB PO SCH (17:30)
[2024-07-12] MEDS ORDERED: ENOXAPARIN SODIUM 40 MG/0.4 ML SYR SC SCH (21:00)
[2024-07-13 00:17] VITALS: BP 143/68
[2024-07-13 05:01] VITALS: BP 123/70
[2024-07-13 05:19] LABS: HEMATOCRIT 40.8 % (37.0-47.0); MEAN CELL VOLUME 102.5 fL CALC (80.0-100.0); MEAN CORPUSCULAR HGB 32.7 pG CALC (26.0-32.0); MEAN CORPUSCULAR HGB CONC 31.9 g/dL CAL (32.0-36.0); RED BLOOD COUNT 3.98 mill/uL (4.20-5.60)
[2024-07-13 05:35] LABS: BILIRUBIN, TOTAL 0.8 mg/dL (0.02-1.3); CREATININE 0.7 mg/dL (0.5-1.0); MAGNESIUM 2.2 mg/dL (1.6-2.3); POTASSIUM 4.1 mmol/l (3.5-5.1); TOTAL PROTEIN 5.5 g/dL (6.3-8.2)
[2024-07-13 05:47] LABS: ALBUMIN 3.1 g/dL (3.2-5.0)
[2024-07-13 08:36] VITALS: BP 163/60
[2024-07-13 08:38] VITALS: BP 163/60
== END 2024-07-13 10:05 | disposition home or self-care (01) | DRG 440 ==
LOC: ED 21:04 → ED-I 22:49 → ED 07-12 01:09 → ICU 07-12 01:10
PROVIDERS: Emergency Medicine; ADMIT Internal Medicine; ATTEND Internal Medicine
DX: K85.30 Drug induced acute pancreatitis without necrosis or infection (principal); T38.0X5A Adverse effect of glucocorticoids and synthetic analogues, initial encounter; I10 Essential (primary) hypertension; E11.9 Type 2 diabetes mellitus without complications; I48.0 Paroxysmal atrial fibrillation; E78.5 Hyperlipidemia, unspecified; K21.9 Gastro-esophageal reflux disease without esophagitis; Z86.16 Personal history of COVID-19; Z79.84 Long term (current) use of oral hypoglycemic drugs; Z87.891 Personal history of nicotine dependence
CPT/HCPCS: Q9967

== ENCOUNTER 2024-10-10 16:40 | Emergency (ER) | payer MEDICARE, OTHER ==
[~2024-10-10] VITALS: Ht 165.1 cm; Wt 70.0 kg
[2024-10-10 17:06] VITALS: BP 193/80
[2024-10-10 17:16] VITALS: BP 169/57
[2024-10-10] MEDS ORDERED: Diph, Acellular Pertussis, Tet 0.5 ML/VIAL (Tdap) SDV IM ONE (17:25)
[2024-10-10 17:30] VITALS: BP 183/84
[2024-10-10 17:40] VITALS: BP 183/84
== END 2024-10-10 17:40 | disposition home or self-care (01) ==
LOC: ED 16:40
DX: S61.011A Laceration without foreign body of right thumb without damage to nail, initial encounter (principal); I10 Essential (primary) hypertension; E11.9 Type 2 diabetes mellitus without complications; K21.9 Gastro-esophageal reflux disease without esophagitis; W27.4XXA Contact with kitchen utensil, initial encounter; Y93.G1 Activity, food preparation and clean up; Y92.000 Kitchen of unspecified non-institutional (private) residence as the place of occurrence of the external cause; Z86.16 Personal history of COVID-19; Z79.01 Long term (current) use of anticoagulants
CPT/HCPCS: 90715